=== PATIENT | female | born 1945 | race Caucasian/White ===

== ENCOUNTER 2019-05-24 14:17 | Outpatient (CLI) | payer MEDICARE, SELFPAY ==
--- NOTE | ~2019-05-24 | CT_ITS ---
EXAMINATION: CT chest abdomen pelvis w con EXAM DATE: 05/24/2019 14:55 INDICATION: Cancers of endometrium, appendix, non-Hodgkin lymphoma. TECHNIQUE: Spiral CT of the chest, abdomen and pelvis was performed following intravenous injection o f 100 mL Omnipaque 350. Axial, coronal and sagittal images were reviewed. Coronal maximum intensity pixel images of chest reviewed. The dose-length product (DLP) for this examination was 383.00 mGy-c m. The exposure was tailored according to patient size (auto mA exposure control), and iterative rec onstruction (ASIR) was used as additional dose reduction technique. Comparison is made to prior exami nation from 02/28/2019. FINDINGS: CHEST: Again there are approximately 8 cystic masses within the lungs bilaterally, most have thin-wa lled and very minimal solid component with multiple internal septations. 2 right lower lobe nodules h ave more substantial soft tissue component, largest measuring up to 2.4 cm, solid component may be mi nimally increased in size compared to prior study (previous largest dimension about 2.0 cm). There is moderate bronchiectasis, mild emphysema. Chronic apical scarring. 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 There is a right-sided Chemo-Port. There are no pleural or pe ricardial effusions. Tracheobronchial tree is patent. There is no mediastinal, hilar or axillary lymphadenopathy. There is no pneumothorax. Heart normal in size. There is mild coronary arteria l calcification, arterial sclerosis. ABDOMEN PELVIS: The liver, spleen, adrenal glands and pancreas are unremarkable. Gallbladder is unre markable. No biliary obstruction. Portal and splenic veins are patent. Kidneys enhance symmetrical ly. There is no hydronephrosis. The uterus is not identified and has likely been surgically resect ed. The bladder is unremarkable. There is no retroperitoneal or pelvic lymphadenopathy. There is mild scattered arteriosclerotic disease. Probable appendectomy. The stomach and small bowel are unremarkable. There is expected amount of co lonic stool. No free intraperitoneal gas. There are no osteoblastic or osteolytic lesions identif ied. There is severe bilateral hip arthritis, with collapse of both femoral heads more advanced on th e right side, does not appear significantly changed. Again there are mild to moderate compression fra ctures of T12 and L2, mild compression fracture of T11. IMPRESSION: 1. Cystic metastatic lung nodules unchanged number but may have minimal interval increase in solid c omponent of 2 nodules at the right lung base. 2. No evidence of intra-abdominal metastatic disease. 3. Chronic osseous findings. Reviewed, dictated and finalized at location A. IMPRESSION: 1. Cystic metastatic lung nodules unchanged number but may have minimal interv al increase in solid component of 2 nodules at the right lung base. 2. No evidence of intra-abdominal metastatic disease. 3. Chronic osseous findings.
== END 2019-05-24 14:18 | disposition home or self-care (01) ==
PROVIDERS: PCP Family Medicine; Visit Provider Internal Medicine Hematology & Oncology
DX: C54.1 Malignant neoplasm of endometrium (principal)
CPT/HCPCS: 71260; 74177; Q9967

== ENCOUNTER 2019-09-06 09:54 | Outpatient (CLI) | payer MEDICARE, SELFPAY ==
--- NOTE | ~2019-09-06 | CT_ITS ---
EXAMINATION: CT chest abdomen pelvis w con EXAM DATE: 09/06/2019 11:12 INDICATION: Endometrial carcinoma, recurrence. TECHNIQUE: Spiral CT of the chest, abdomen and pelvis was performed following intravenous injection o f 100 mL Omnipaque 350. Axial, coronal and sagittal images were reviewed. Coronal maximum intensity pixel images of chest reviewed. The dose-length product (DLP) for this examination was 416.86 mGy-c m. The exposure was tailored according to patient size (auto mA exposure control), and iterative rec onstruction (ASIR) was used as additional dose reduction technique. Comparison is made to prior exami nation from 05/24/2019. FINDINGS: CHEST: Approximately 8 lung metastases, 6 of which have cystic components are identified. Again the largest solid component is in the right lower lobe measuring 2.4 x 2.2 cm today which is unchanged. T hese all appear unchanged compared to prior study, stable. There is mild emphysema. Congenital aberra nt right subclavian artery. No central pulmonary emboli. There is moderate bronchiectasis. There are no pleural or pericardial effusions. Tracheobronchial tree is patent. There is no mediastinal, h ilar or axillary lymphadenopathy. There is no pneumothorax. Heart normal in size. There is mild coronary arterial calcification, arterial sclerosis. ABDOMEN PELVIS: The liver, spleen, adrenal glands and pancreas are unremarkable. Gallbladder is unre markable. No biliary obstruction. Portal and splenic veins are patent. Kidneys enhance symmetrical ly. There is no hydronephrosis. The uterus is not identified and has likely been surgically resect ed. The bladder is unremarkable. There is no retroperitoneal or pelvic lymphadenopathy. There is mild scattered arteriosclerotic disease. Cecal base surgical changes. Probable appendectomy. The stomach and small bowel are unremarkable. T here is expected amount of colonic stool. No free intraperitoneal gas. Severe bilateral hip arthr itis, collapse of the femoral heads which is more advanced on the right side. Mild to moderate chroni c compression fractures T12 and L2, mild at T11. There are no osteoblastic or osteolytic lesions iden tified. IMPRESSION: 1. Stable lung metastases. 2. Other chronic findings unchanged. Reviewed, dictated and finalized at location A.
== END 2019-09-06 09:55 | disposition home or self-care (01) ==
PROVIDERS: PCP Family Medicine; Visit Provider Internal Medicine Hematology & Oncology
DX: C54.1 Malignant neoplasm of endometrium (principal); C78.00 Secondary malignant neoplasm of unspecified lung
CPT/HCPCS: 71260; 74177; Q9967

== ENCOUNTER 2019-11-29 10:15 | Outpatient (CLI) | payer MEDICARE, SELFPAY ==
--- NOTE | ~2019-11-29 | CT_ITS ---
EXAMINATION: CT chest abdomen pelvis w con DATE: 11/29/2019 10:57 INDICATION: Carcinoma of the endometrium TECHNIQUE: Transaxial computed tomographic images of the chest, abdomen, and pelvis were obtained aft er the administration of 100 cc of Omnipaque 350 intravenous contrast. The dose-length product (DLP) was 405.05 mGy-cm. Automated exposure control and iterative reconstruction technique were employed. COMPARISON: 08/27/2019 FINDINGS: CHEST CT: A right internal jugular Port-A-Cath ends with its tip in the right atrium. There are stable cystic m asses with thin internal septations and cystic and solid masses in the lungs. No new lung nodule or m ass is identified. There is no pleural effusion or pneumothorax. No pathologically enlarged thoracic lymph nodes are identified. The heart size is normal. Aberrant origin of the right subclavian artery is again noted. ABDOMEN/PELVIS CT: The liver, spleen, pancreas, gallbladder, and adrenal glands are normal. The kidneys are unremarkable . There is calcified atherosclerosis of the aorta and many of the other arteries. No pathologically e nlarged abdominal or pelvic lymph nodes are identified. Surgical changes are noted in the bowel with a anastomosis seen in the right pelvis. There are chronic and unchanged compression fractures of T11, T12, and L2. There is severe lumbar spondylosis at L4-5. There is advanced osteoarthritis of the hip s with deformity of the femoral heads. IMPRESSION: 1. Stable metastatic disease of the lungs without evidence of new or metastatic disease in the chest, abdomen, or pelvis. Reviewed, dictated and finalized at location A.
== END 2019-11-29 10:16 | disposition home or self-care (01) ==
PROVIDERS: PCP Family Medicine; Visit Provider Internal Medicine Hematology & Oncology
DX: C54.1 Malignant neoplasm of endometrium (principal); C78.00 Secondary malignant neoplasm of unspecified lung
CPT/HCPCS: 71260; 74177; Q9967

== ENCOUNTER 2020-02-15 14:15 | Outpatient (CLI) | payer MEDICARE, SELFPAY ==
--- NOTE | 2020-02-15 14:56 | ECHO_ITS ---
Patient Info Name: Kailee Marques Age: 74 years : 1945 Gender: Female Ht: 60 in Wt: 127 lbs BSA: 1.57 m2 HR: 87 bpm BP: 178 / 96 mmHg Technical Quality: Good Exam Date: 02/15/2020 3:24 PM Exam Location: [facility] Patient Status: Outpatient Admit Date: 02/15/2020 Staff Ordering Physician: Frank Menjivar DO Sales Management Intern: Esequiel Light RDCS Attending Provider: Frank Menjivar DO Referring Physician: Otto CARR; Exam Type: CA echo doppler color flow Study Info Indications I34.1 - Nonrheumatic mitral (valve) prolapse Complete two-dimensional, color flow and Doppler transthoracic echocardiogram is performed. Summary 1. Complete two-dimensional, color flow and Doppler transthoracic echocardiogram is performed. 2. Left ventricular chamber dimension is normal. 3. Left ventricular systolic function is normal, estimated at 60-65%. 4. The left ventricular diastolic function is abnormal. 5. E/e' 23 is elevated. 6. Left atrial chamber dimension is severely enlarged. 7. 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 8. There is mild to moderate mitral valve regurgitation with eccentric jet that is anteriorly directed which could underestimate severity of regurgitation. 9. There is mild tricuspid valve regurgitation. 10. Mild pulmonary hypertension, estimated pulmonary arterial systolic pressure is 41 mmHg. Left Ventricle E/e' 23 is elevated. Left ventricular chamber dimension is normal. Left ventricular systolic function is normal, estimated at 60-65%. The left ventricular diastolic function is abnormal. Right Ventricle Right ventricular chamber dimension is normal. Right ventricular systolic function is normal. Left Atria Left atrial chamber dimension is severely enlarged. Right Atria Right atrial chamber dimension is normal. Aortic Valve The aortic valve is trileaflet. There is no aortic valve stenosis. There is no aortic valve regurgitation. Pulmonic Valve There is no pulmonic regurgitation. 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 There is mild to moderate mitral valve regurgitation with eccentric jet that is anteriorly directed which could underestimate severity of regurgitation. There is no mitral valve stenosis. Tricuspid Valve There is mild tricuspid valve regurgitation. Mild pulmonary hypertension, estimated pulmonary arterial systolic pressure is 41 mmHg. Pericardium/Pleural There is no pericardial effusion. Inferior Vena Cava Normal inferior vena cava with >50% collapse upon inspiration consistent with normal right atrial pressure, 5 mmHg. Aorta The aortic root size at the sinus of Valsalva is normal. Left Ventricular Outflow Tract Name Value Normal LVOT 2D LVOT Diameter 2.0 cm Mitral Valve Name Value Normal MV Doppler MV Peak Gradient 3 mmHg MV Mean Gradient 1 mmHg MV Decel Jones 692 cm/s2
== END 2020-02-15 14:16 | disposition home or self-care (01) ==
LOC: ANHCARD 14:16
PROVIDERS: PCP Family Medicine; Visit Provider Internal Medicine Cardiovascular Disease
DX: I08.3 Combined rheumatic disorders of mitral, aortic and tricuspid valves (principal)
CPT/HCPCS: 93306

== ENCOUNTER 2020-04-03 12:05 | Outpatient (CLI) | payer MEDICARE, SELFPAY ==
--- NOTE | ~2020-04-03 | CT_ITS ---
EXAMINATION: CT chest abdomen pelvis w con DATE: 04/03/2020 13:04 INDICATION: Restaging of endometrial carcinoma TECHNIQUE: Computed tomography (CT) of the chest, abdomen, and pelvis was performed with 100 cc Omnip aque 350 intravenous contrast. Automated exposure control and iterative reconstruction technique were employed. Exam dose: 462.98 mGy-cm total exam DLP. COMPARISON: 11/29/2019 CT chest abdomen pelvis FINDINGS: CHEST CT: Right Port-A-Cath catheter. Stable bilateral apical pulmonary scarring. Bilateral pulmonary cystic and mixed cystic and solid masses are again noted with minimal variability in size since 11/29/2019. Some are slightly increased and some are slightly decreased in size since the prior examination. No interval pulmonary mass lesion is noted. No pulmonary infiltrate or consoli dation. Again noted is a an apparent origin of the right subclavian artery which courses posterior to the eso phagus. No CT evidence of pulmonary embolism. No hilar or mediastinal mass lesion or lymphadenopathy. Normal heart size. No pericardial or pleural effusion or pneumothorax. ABDOMEN/PELVIS CT: The liver, gallbladder, bile ducts, spleen, pancreas, pancreatic duct and adrenal glands are unremark able. No renal mass lesion or urinary tract calculus or hydroureteronephrosis. There is atherosclerotic calcification of the abdominal aorta and branches but no abdominal aortic an eurysm. No intraperitoneal or retroperitoneal or pelvic mass lesion or adenopathy or ascites. The uri nary bladder is unremarkable. Status post hysterectomy. There is a suture line at the cecum. The sigmoid colon is very redundant. There is a prominent amount of fecal material in the colon. No bowel obstruction, bowel wall thickening, pneumatosis or intraper itoneal free air is evident. Moderate anterior wedge compression fracture deformities of T11, T12 and L2. Severe degenerative disc disease at L4-5. Severe degenerative and erosive/destructive changes at both hip joints, with severe flattening and de formity of the femoral heads, right worse than left. IMPRESSION: Status post hysterectomy for endometrial carcinoma Relatively stable bilateral pulmonary metastatic disease Reviewed, dictated and finalized at Location A. Reviewed, dictated and finalized at location A. OR DEPARTMENT SUPERVISOR
== END 2020-04-03 12:06 | disposition home or self-care (01) ==
PROVIDERS: Family Provider Internal Medicine Cardiovascular Disease; PCP Family Medicine; Visit Provider Internal Medicine Hematology & Oncology
DX: C54.1 Malignant neoplasm of endometrium (principal); C78.02 Secondary malignant neoplasm of left lung; C78.01 Secondary malignant neoplasm of right lung
CPT/HCPCS: 71260; 74177; Q9967

== ENCOUNTER 2020-07-24 09:29 | Outpatient (CLI) | payer MEDICARE, SELFPAY ==
--- NOTE | ~2020-07-24 | CT_ITS ---
EXAMINATION: CT chest abdomen pelvis w con EXAM DATE: 07/24/2020 10:14 INDICATION: Endometrial cancer. Lung metastases. TECHNIQUE: Spiral CT of the chest, abdomen and pelvis was performed following intravenous injection o f 100 mL Omnipaque 350. Axial, coronal and sagittal images chest, abdomen and pelvis were reviewed. Coronal maximum intensity pixel images of chest reviewed. The dose-length product (DLP) for this ex amination was 490.57 mGy-cm. The exposure was tailored according to patient size (auto mA exposure c ontrol), and iterative reconstruction (ASIR) was used as additional dose reduction technique. Compari son is made to prior examination from 09/06/2019. FINDINGS: CHEST: There is a right-sided Chemo-Port. Again there are scattered pulmonary metastatic lesions wit h varying degrees of cavitation. Largest in the right lower lobe measuring 2.8 x 2.6 cm (dimensions o n CT last year 2.5 x 2.4 cm), modest interval increase in size can be demonstrated compared to one ye ar ago, but difficult to appreciate change compared to March. There is a right middle lobe nodule measuring 1.8 cm today, size unchanged but now has more substantial solid component. Difficult to igor reciate any interval change in the other lesions. There is mild emphysema and bronchiectasis. Aberran t right plate in artery, congenital variant There are no pleural or pericardial effusions. Tracheob ronchial tree is patent. There is no mediastinal, hilar or axillary lymphadenopathy. There is no pneumothorax. Heart normal in size. There is mild coronary arterial calcification, arterial scler osis. ABDOMEN PELVIS: The liver, spleen, adrenal glands and pancreas are unremarkable. Gallbladder is unre markable. No biliary obstruction. Portal and splenic veins are patent. Kidneys enhance symmetrical ly. There is no hydronephrosis. Uterus and ovaries have been resected. No evidence of peritoneal c arcinomatosis. The bladder is unremarkable. There is no retroperitoneal or pelvic lymphadenopathy. There is mild scattered arteriosclerotic disease. Cecal surgical change, suture material with appendix not identified. The stomach and small bowel are unremarkable. There is moderate amount of colonic stool. No free intraperitoneal gas. Mild to mo derate chronic compression fractures T12 and L2, mild at T11. There are no osteoblastic or osteolytic lesions identified. There is severe bilateral hip osteoarthritis, completely collapsed right femora l head mild collapse on the left. IMPRESSION: 1. Pulmonary metastases, with modest interval increase in solid component, volume compared to one ye ar ago. 2. Mild emphysema and bronchiectasis. Severe bilateral hip osteoarthritis. 3. Chronic thoracolumbar compression fractures. 4. Surgical changes. Reviewed, dictated and finalized at location B. IMPRESSION: 1. Pulmonary metastases, with modest interval increase in solid component, vol ume compared to one year ago. 2. Mild emphysema and bronchiectasis. Severe bilateral hip osteoarthritis. 3. Chronic thoracolumbar compression fractures. 4. Surgical changes.
== END 2020-07-24 09:30 | disposition home or self-care (01) ==
PROVIDERS: PCP Family Medicine; Visit Provider Internal Medicine Hematology & Oncology
DX: C54.1 Malignant neoplasm of endometrium (principal); J43.9 Emphysema, unspecified; R91.8 Other nonspecific abnormal finding of lung field
CPT/HCPCS: 71260; 74177; Q9967

== ENCOUNTER 2020-09-04 12:45 | Emergency (ER) | payer MEDICARE, SELFPAY ==
--- NOTE | 2020-09-04 12:57 | ED.FEMALEGU ---
HPI - Female Genitourinary General Chief complaint: Urogenital-Female Stated complaint: Possible UTI Time Seen by Provider: 09/04/20 12:57 Source: patient and RN notes reviewed History of Present Illness HPI Narrative: Patient is a 75-year-old female who presents the urgent care with complaints of a possible UTI. Patient states that she started with symptoms last night with dysuria, cloudy urine and low back pain. Patient denies any fever, chills, nausea, vomiting, abdominal pain. Patient does have a history of UTIs. Denies of any dvhe-ehi-tytznnd medication for her pain. Patient does have infusions for stage IV lung cancer and is currently in remission. No other acute complaints. No acute distress noted. Patient aware of the plan of care. Some parts of this dictation were generated by voice recognition software and may contain typographical and/or grammatical inaccuracies. Related Data Home Medications Medication Instructions Recorded Confirmed Lactobacillus acidophilus 2 cap PO TID 11/23/18 09/04/20 biotin 1,000 mcg PO TID 11/23/18 09/04/20 cholecalciferol (vitamin D3) 1,000 unit PO DAILY 11/23/18 09/04/20 krill xyx-bmscf-2-dha-epa 300 cap PO DAILY 11/23/18 09/04/20 magnesium oxide 400 mg PO DAILY 11/23/18 09/04/20 multivitamin 0.5 tablet PO BID 11/23/18 09/04/20 ubidecarenone-omega 3-vit E 1 cap PO DAILY 11/23/18 09/04/20 calcium carbonate 600 mg calcium 600 mg PO DAILY tablet 10/24/19 09/04/20 (1,500 mg) tablet Ocuvite 1 tablet PO DAILY 09/04/20 09/04/20 latanoprost 1 drp EACH EYE BID 09/04/20 09/04/20 timolol maleate 1 drp EACH EYE BID 09/04/20 09/04/20 Allergies Allergy/AdvReac Type Severity Reaction Status Date / Time codeine Allergy Severe Nausea and Verified 09/04/20 13:13 Vomiting hydrocodone AdvReac Severe Hallucinati Verified 09/04/20 13:13 ng morphine AdvReac Severe Nausea and Verified 09/04/20 13:13 Vomiting propoxyphene AdvReac Severe Nausea and Verified 09/04/20 13:13 Vomiting tramadol AdvReac Severe Nausea and Verified 09/04/20 13:13 Vomiting cyclobenzaprine AdvReac Mild Other Verified 09/04/20 13:13 acetaminophen AdvReac Unknown Nausea Verified 09/04/20 13:13 cortisone AdvReac Unknown Nausea Verified 09/04/20 13:13 ibuprofen AdvReac Unknown Gastrointestinal Verified 09/04/20 13:13 Upset prednisone AdvReac Unknown Nausea Verified 09/04/20 13:13 Review of Systems Review of Systems: Narrative: CONSTITUTIONAL: Denies fever, chills, or sweats. EYES: Denies visual changes, redness, or discharge. ENT: Denies rhinorrhea, congestion, sore throat, or otalgia. CARDIOVASCULAR: Denies chest pain, palpitations, or edema. RESPIRATORY: Denies cough or dyspnea. GASTROINTESTINAL: Denies abdominal pain, nausea, vomiting, or diarrhea. GENITOURINARY: Reports of dysuria and cloudy urine SKIN: Denies rash or itching. MUSCULOSKELETAL: Reports of low back pain NEUROLOGIC: Denies headache, numbness, or weakness. All other systems reviewed are negative, except as documented in HPI. 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
[2020-09-04 13:14] VITALS: PULSE 86; RESP 18; TEMP 36.7; O2SAT 99
[2020-09-04 13:15] VITALS: BP 140/88
[2020-09-04 13:19] VITALS: PULSE 86; RESP 18; TEMP 36.7; O2SAT 99
== END 2020-09-04 14:00 | disposition home or self-care (01) ==
PROVIDERS: Emergency Provider Nurse Practitioner Family; PCP Family Medicine
DX: N39.0 Urinary tract infection, site not specified (principal); M81.0 Age-related osteoporosis without current pathological fracture; Z85.118 Personal history of other malignant neoplasm of bronchus and lung; Z85.038 Personal history of other malignant neoplasm of large intestine; Z85.42 Personal history of malignant neoplasm of other parts of uterus; Z98.49 Cataract extraction status, unspecified eye
CPT/HCPCS: 81003; 87086; 87088; 99213; G0463

== ENCOUNTER 2020-11-26 13:46 | Outpatient (CLI) | payer MEDICARE, SELFPAY ==
--- NOTE | ~2020-11-26 | CT_ITS ---
EXAMINATION: CT chest abdomen pelvis w con DATE: 11/26/2020 15:09 INDICATION: Recurrent carcinoma of the endometrium TECHNIQUE: Transaxial computed tomographic images of the chest, abdomen, and pelvis were obtained aft er the administration of 100 cc of Omnipaque 350 intravenous contrast. The dose-length product (DLP) was 419.05 mGy-cm. Automated exposure control and iterative reconstruction technique were employed. COMPARISON: 07/24/2020 FINDINGS: CHEST CT: There is a 2.9 x 2.6 cm nodule of the right lower lobe without significant change. A cavitary nodule of the right lower lobe with a peripheral nodular component measuring 1.6 cm is also not significantl y changed. There is a stable 2.4 cm predominantly cystic nodule of the right lower lobe. A 1.9 cm nod ule of the right middle lobe is stable. Cavitary nodules of the left lower lobe are also stable. No n ew pulmonary nodules are identified. There is no pleural effusion or pneumothorax. A right internal j ugular venous catheter ends with its tip in the right atrium. There is aberrant origin of the right s ubclavian artery. ABDOMEN/PELVIS CT: The liver, spleen, pancreas, gallbladder, and adrenal glands are normal. The kidneys are unremarkable . No pathologically enlarged abdominal or pelvic lymph nodes are identified. There is no free intrape ritoneal gas or evidence of bowel obstruction. There is calcified atherosclerosis of the aorta and ma ny of the other arteries. Surgical changes are noted in the cecum. There are also changes of hysterec phil and oophorectomy. There is chronic severe osteoarthritis of the hips with deformity of the femor al heads. Chronic compression fractures of T11, T12, and L2 are noted. Severe lumbar spondylosis is p resent at L4-5. IMPRESSION: 1. Stable pulmonary nodules, consistent with metastatic disease. 2. No significant change in the abdomen or pelvis is identified. Reviewed, dictated and finalized at location A.
== END 2020-11-26 13:47 | disposition home or self-care (01) ==
LOC: ANHIMG 13:52
PROVIDERS: PCP Family Medicine; Visit Provider Internal Medicine Hematology & Oncology
DX: C54.1 Malignant neoplasm of endometrium (principal); R91.8 Other nonspecific abnormal finding of lung field
CPT/HCPCS: 71260; 74177; Q9967

== ENCOUNTER 2020-12-04 11:09 | Outpatient (CLI) | payer MEDICARE, SELFPAY ==
[2020-12-04 13:00] LABS: Vitamin D 25 Hydroxy 88.1 ng/mL
[2020-12-04 13:28] LABS: Cholesterol 298 mg/dL (0-200); HDL Direct 72 mg/dL; Triglycerides 199 mg/dL (<150)
[2020-12-04 13:40] LABS: LDL Cholesterol Direct 156 mg/dL
[2020-12-04 14:19] LABS: Vitamin B12 > 1000.0 pg/mL (239-931)
[2020-12-04 15:31] LABS: Free T4 Free Thyroxine Reflex 0.78 ng/dL (0.78-2.19)
== END 2020-12-04 11:10 | disposition home or self-care (01) ==
LOC: ANHLAB 11:13
PROVIDERS: PCP Family Medicine; Visit Provider Nurse Practitioner
DX: E55.9 Vitamin D deficiency, unspecified (principal); I10 Essential (primary) hypertension; E89.0 Postprocedural hypothyroidism; E53.8 Deficiency of other specified B group vitamins
CPT/HCPCS: 36415; 80061; 82306; 82607; 84439; 84443; 84480

== ENCOUNTER 2021-03-19 12:54 | Outpatient (CLI) | payer MEDICARE, SELFPAY ==
[2021-05-14 08:22] LABS: Cholesterol 298 mg/dL (0-200); HDL Direct 70 mg/dL; LDL Cholesterol Direct 148 mg/dL; Triglycerides 157 mg/dL (<150)
== END 2021-03-19 13:34 | disposition home or self-care (01) ==
LOC: ANHLAB 04-15 12:54
PROVIDERS: PCP Family Medicine; Visit Provider Internal Medicine Cardiovascular Disease
DX: I10 Essential (primary) hypertension (principal)
CPT/HCPCS: 36415; 80048; 80061

== ENCOUNTER 2021-04-03 10:16 | Outpatient (CLI) | payer MEDICARE, SELFPAY ==
--- NOTE | ~2021-04-03 | CT_ITS ---
EXAMINATION: CT chest abdomen pelvis w con DATE: 04/03/2021 11:03 INDICATION: Recurrent carcinoma of endometrium. TECHNIQUE: Computed tomography (CT) of the chest, abdomen, and pelvis was performed with 100 mL Omnip aque 350 intravenous contrast. Automated exposure control and iterative reconstruction technique were employed. The dose-length product was 357.26 mGy-cm. COMPARISON: CT 11/26/2020 FINDINGS: CHEST CT: There is mild scarring at the lung apices. There is a 3.2 x 3.0 cm mass in right lung lower lobe that previously measured 3.0 x 2.9 cm. There is a 2.0 x 1.1 cm nodule in right middle lobe that previousl y measured 2.0 x 1.0 cm. Again seen are 2 cavitary nodules in right lower lobe. Again seen are 2 cavi tary nodules in left lower lobe. No pleural effusion. There are nodules in the thyroid measuring up t o 5 mm, likely not clinically significant. There is a right internal jugular port with tip in right a trium. There is left atrial enlargement of the heart. No pericardial effusion. There is an aberrant r ight subclavian artery. ABDOMEN/PELVIS CT: The liver, gallbladder, spleen, pancreas, and adrenal glands are normal. There is cortical thinning o f the kidneys. There is an anastomosis at the ileocolic junction. There are no pathologically enlarge d lymph nodes. There is trace pelvic ascites. There is severe osteoarthritis of the hips. There is a chronic burst fracture of T12. There are chronic compression fractures of T11 and L2. IMPRESSION: 1. Stable pulmonary nodules and right lower lobe mass, consistent with metastatic disease. Reviewed, dictated and finalized at location A. TY PUMP OPERATOR IMPRESSION: 1. Stable pulmonary nodules and right lower lobe mass, consistent with metastat ic disease.
== END 2021-04-03 10:17 | disposition home or self-care (01) ==
LOC: ANHIMG 10:17
PROVIDERS: PCP Family Medicine; Visit Provider Internal Medicine Hematology & Oncology
DX: C54.1 Malignant neoplasm of endometrium (principal); R91.8 Other nonspecific abnormal finding of lung field
CPT/HCPCS: 71260; 74177; Q9967

== ENCOUNTER 2021-04-05 12:17 | Outpatient (CLI) | payer MEDICARE, SELFPAY ==
--- NOTE | 2021-04-05 12:35 | ECHO_ITS ---
Patient Info Name: Kailee Marques Age: 75 years : 1945 Gender: Female Ht: 61 in Wt: 126 lbs BSA: 1.58 m2 HR: 92 bpm BP: 159 / 87 mmHg Technical Quality: Good Exam Date: 04/05/2021 1:03 PM Exam Location: [facility] Patient Status: Outpatient Admit Date: 04/05/2021 Staff Ordering Physician: Frank Menjivar DO Retail Area Manager: Lida Goodman RDCS Attending Provider: Frank Menjivar DO Referring Physician: Otto CARR; Exam Type: CA echo doppler color flow Study Info Indications I34.1 - Nonrheumatic mitral (valve) prolapse Complete two-dimensional, color flow and Doppler transthoracic echocardiogram is performed. Summary 1. Complete two-dimensional, color flow and Doppler transthoracic echocardiogram is performed. 2. Left ventricular chamber dimension is normal. 3. Ventricular septum is sigmoid shaped. No LVOT obstruction. 4. Left ventricular systolic function is normal, estimated at 65-70%. 5. The left ventricular diastolic function is abnormal. 6. E/e' 18 is elevated. 7. Global longitudinal strain is normal at -22.0%. 8. Left atrial chamber dimension is severely enlarged. 9. Right atrial chamber dimension is mildly enlarged. 10. Linear artifact in the right atrium suggestive of catheter(s), pacemaker lead(s), or ICD lead(s). 11. There is mild aortic valve sclerosis. 12. The mitral valve has moderately thickened leaflets and severe posterior prolapse. 13. There is mild mitral valve regurgitation. 14. The tricuspid valve leaflets are mildly thickened. 15. There is mild to moderate tricuspid valve regurgitation. 16. Mild pulmonary hypertension, estimated pulmonary arterial systolic pressure is 43 mmHg. Left Ventricle E/e' 18 is elevated. Global longitudinal strain is normal at -22.0%. Ventricular septum is sigmoid shaped. No LVOT obstruction. Left ventricular chamber dimension is normal. Left ventricular systolic function is normal, estimated at 65-70%. The left ventricular diastolic function is abnormal. Right Ventricle Right ventricular systolic function is normal and with normal TAPSE 2.2 cm. Right ventricular chamber dimension is normal. Left Atria Left atrial chamber dimension is severely enlarged. Right Atria Linear artifact in the right atrium suggestive of catheter(s), pacemaker lead(s), or ICD lead(s). Right atrial chamber dimension is mildly enlarged. Aortic Valve The aortic valve is trileaflet. There is mild aortic valve sclerosis. There is no aortic valve stenosis. There is no aortic valve regurgitation. Pulmonic Valve There is no pulmonic regurgitation. Mitral Valve The mitral valve has moderately thickened leaflets and severe posterior prolapse. There is no mitral valve stenosis. There is mild mitral valve regurgitation. Tricuspid Valve The tricuspid valve leaflets are mildly thickened. There is mild to moderate tricuspid valve regurgitation. Mild pulmonary hypertension, estimated pulmonary arterial systolic pressure is 43 mmHg. Pericardium/Pleural There is no pericardial effusion. Inferior Vena Cava Normal inferior vena cava with >50% collapse upon inspiration consistent with normal right atrial pressure, 5 mmHg. Aorta The aortic root size at the sinus of Valsalva is normal. Left Ventricular Outflow Tract Name Value Normal
== END 2021-04-05 12:18 | disposition home or self-care (01) ==
LOC: ANHCARD 12:19
PROVIDERS: PCP Family Medicine; Visit Provider Internal Medicine Cardiovascular Disease
DX: I08.3 Combined rheumatic disorders of mitral, aortic and tricuspid valves (principal)
CPT/HCPCS: 93306

== ENCOUNTER 2021-08-05 10:33 | Outpatient (CLI) | payer MEDICARE, SELFPAY ==
--- NOTE | ~2021-08-05 | CT_ITS ---
EXAMINATION: CT chest abdomen pelvis wo con DATE: 08/05/2021 10:58 INDICATION: Restaging of endometrial carcinoma; no signs or symptoms reported at this time TECHNIQUE: Computed tomography (CT) of the chest, abdomen, and pelvis was performed without intraveno us contrast. Automated exposure control and iterative reconstruction technique were employed. Exam do se: 388.41 mGy-cm total exam DLP. COMPARISON: April 03, 2021 CT chest abdomen pelvis FINDINGS: CHEST CT: Right Port-A-Cath catheter is again noted. Mild chronic bilateral apical scarring. Bilateral pulmonary masses are stable since April 03, 2021 including middle lobe soft tissue mass abutting the anterior aspect of the greater fissure, measuring approximately 11.5 x 18 mm compared to 10.1 x 18 mm on April 03, 2021, soft tissue 2.9 cm mass of the anterolateral right lung base, sta ble. There are 2 large cavitary up to approximately 2 cm and 1.8 cm size, also relatively unchanged s len April 03, 2021. Approximately 7.5 mm and 14 mm left upper lobe cavitary nodules are stable. Stable approximately 11 m m posteromedial left lower lobe cavitary nodule. Chronic discoid scarring at the lung bases. No pulmonary infiltrate or consolidation or pneumothorax. 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 Normal heart size. No thoracic aortic aneurysm. There is aortic and coronary artery calcification. Normal heart size. No pericardial or pleural effusion. ABDOMEN/PELVIS CT: Normal morphology of the adrenal glands. The liver, spleen, pancreas, gallbladder, bile ducts and pancreatic duct appear unremarkable. No renal mass lesion or urinary tract calculus or hydroureteronephrosis is detected. The urinary blad merly is relatively evacuated. A small amount of free fluid in the posterior cul-de-sac on the right. S tatus post hysterectomy. There is atherosclerotic calcification of the abdominal aorta, prominent calcification of the proxima l right renal artery. No abdominal of aortic aneurysm. No intraperitoneal or retroperitoneal or pelvic mass lesion or adenopathy or ascites is detected. Suture line of the cecum. No bowel obstruction or intraperitoneal free air. 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 There are anterior wedge compression fracture deformities of T11, L2 and burst fracture of T12, all s table since April 03, 2021. There is multilevel degenerative disc disease, most pronounced at L4-5. Osteopenia. 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 Reviewed, dictated and finalized at location [facility].
== END 2021-08-05 10:34 | disposition home or self-care (01) ==
PROVIDERS: PCP Family Medicine; Visit Provider Internal Medicine Hematology & Oncology
DX: C54.1 Malignant neoplasm of endometrium (principal); R91.8 Other nonspecific abnormal finding of lung field; M87.851 Other osteonecrosis, right femur; M87.852 Other osteonecrosis, left femur; S22.081A Stable burst fracture of T11-T12 vertebra, initial encounter for closed fracture; X58.XXXA Exposure to other specified factors, initial encounter
CPT/HCPCS: 71250; 74176

== ENCOUNTER 2021-08-16 10:40 | Outpatient (CLI) | payer MEDICARE, SELFPAY ==
[2021-08-16 11:19] LABS: Basophils Absolute Auto 0.1 K/mm3 (0.0-0.1); Eosinophils Absolute Auto 0.1 K/mm3 (0-0.3); Eosinophils Percent Auto 1.6 % (0-4.4); Hematocrit 45.4 % (37.0-47.0); Hemoglobin 14.7 g/dL (12.0-15.0); Lymphocytes Absolute Auto 0.93 K/mm3 (0.9-3.2); Mean Corpuscular HGB Conc 32.4 g/dl (32-36); Mean Corpuscular Hemoglobin 31.4 pg (26-34); Monocytes Absolute Auto 0.4 K/mm3 (0.1-0.6); Monocytes Percent Auto 7.3 % (2.6-8.5); Neutrophils Absolute Auto 3.5 K/mm3 (1.3-6.7); Neutrophils Percent Auto 71.1 % (45.5-73.1); Platelet Count Result 190 k/mm3 (150-375); Red Blood Count 4.68 M/mm3 (4.2-5.4); Red Cell Distribution Width 13.4 % (11.5-14.5); White Blood Count 4.9 K/mm3 (4.5-10.0)
[2021-08-16 11:22] LABS: Blood Urea Nitrogen 17 mg/dL (8-26); Carbon Dioxide 26 mmol/L (22-30); Chloride 98 mmol/L (98-109); Estimated Glomerular Filt Rate > 60; Glucose 92 mg/dL (70-105); Ionized Calcium (POC) 1.28 mmol/L (1.11-1.31); Potassium 4.2 mmol/L (3.5-4.9); Sodium 133 mmol/L (138-146)
[2021-08-16 16:59] LABS: Alanine Aminotransferase 19 U/L (6-35); Albumin Level 4.8 g/dL (3.5-5.1); Alkaline Phosphatase 69 U/L (38-126); Anion Gap 9 mmol/L (8-16); Aspartate Amino Transferase 31 U/L (14-36); Bilirubin,Total 0.4 mg/dL (0.2-1.3); Blood Urea Nitrogen 17 mg/dL (7-17); Calcium 10.1 mg/dL (8.4-10.2); Carbon Dioxide 27 mmol/L (22-30); Chloride 97 mmol/L (98-107); Estimated Glomerular Filt Rate > 60; Glucose 89 mg/dL (65-110); Potassium 4.4 mmol/L (3.4-5.0); Sodium 133 mmol/L (137-145)
[2021-08-16 17:01] LABS: HDL Direct 73 mg/dL; Triglycerides 104 mg/dL (<150)
[2021-08-16 17:06] LABS: LDL Cholesterol Direct 171 mg/dL
[2021-08-16 20:07] LABS: Cholesterol 337 mg/dL (0-200)
== END 2021-08-16 10:41 | disposition home or self-care (01) ==
PROVIDERS: PCP Family Medicine; Referring Provider Internal Medicine Cardiovascular Disease; Visit Provider Internal Medicine Hematology & Oncology
DX: E78.5 Hyperlipidemia, unspecified (principal)
CPT/HCPCS: 36415; 80047; 80053; 80061; 85025

== ENCOUNTER 2021-09-19 08:58 | Outpatient (CLI) | payer MEDICARE, SELFPAY ==
[2021-09-19 10:24] LABS: Alanine Aminotransferase 16 U/L (6-35); Albumin Level 4.7 g/dL (3.5-5.1); Alkaline Phosphatase 63 U/L (38-126); Anion Gap 8 mmol/L (8-16); Aspartate Amino Transferase 34 U/L (14-36); Bilirubin,Total 0.5 mg/dL (0.2-1.3); Blood Urea Nitrogen 14 mg/dL (7-17); Calcium 10.3 mg/dL (8.4-10.2); Carbon Dioxide 31 mmol/L (22-30); Chloride 92 mmol/L (98-107); Cholesterol 180 mg/dL (0-200); Estimated Glomerular Filt Rate > 60; Glucose 95 mg/dL (65-110); HDL Direct 79 mg/dL; Potassium 4.2 mmol/L (3.4-5.0); Sodium 131 mmol/L (137-145); Triglycerides 91 mg/dL (<150)
[2021-09-19 10:35] LABS: LDL Cholesterol Direct 54 mg/dL
== END 2021-09-19 08:59 | disposition home or self-care (01) ==
PROVIDERS: PCP Family Medicine; Visit Provider Internal Medicine Cardiovascular Disease
DX: E78.5 Hyperlipidemia, unspecified (principal)
CPT/HCPCS: 36415; 80053; 80061

== ENCOUNTER 2021-11-12 10:31 | Outpatient (CLI) | payer MEDICARE, SELFPAY ==
--- NOTE | ~2021-11-12 | CT_ITS ---
. EXAMINATION: CT chest abdomen pelvis w con DATE: 11/12/2021 11:44 INDICATION: Recurrent carcinoma of endometrium. TECHNIQUE: Computed tomography (CT) of the chest, abdomen, and pelvis was performed with 100 mL Omnip aque 350 intravenous contrast. Automated exposure control and iterative reconstruction technique were employed. The dose-length product was 379.44 mGy-cm. COMPARISON: CT chest, abdomen, and pelvis 08/05/2021 FINDINGS: CHEST CT: There is mild scarring at the lung apices. There are approximately 7 nodules and one mass in the lung s, some of which are cavitary. A 1.8 cm nodule in right middle lobe is stable from 08/05/2021. A 3.4 c m mass in right lower lobe previously measured 3.2 cm. No pleural effusion. There is a right internal jugular port with tip in right atrium. There is left atrial enlargement of the heart. No pericardial effusion. There is an aberrant right subclavian artery. There is a 5 mm nodule in left thyroid lobe, likely not clinically significant. There is mild thoracic spondylosis. There are chronic fractures o f T11 and T12 vertebral bodies. ABDOMEN/PELVIS CT: The liver, gallbladder, spleen, pancreas, and adrenal glands are normal. There are cysts in the kidne ys measuring up to 4 mm on the left. There are no dilated loops of bowel. There is an anastomosis in the right colon. There are no pathologically enlarged lymph nodes. There is trace pelvic ascites. The re is severe osteoarthritis of the hips. There is severe lumbar spondylosis. There is a chronic compr ession fracture of L2. IMPRESSION: 1. Stable pulmonary nodules and mass, consistent with metastatic disease. Reviewed, dictated and finalized at location [facility].
[2021-11-12 11:37] LABS: Estimated Glomerular Filt Rate > 60
== END 2021-11-12 10:32 | disposition home or self-care (01) ==
PROVIDERS: PCP Family Medicine; Visit Provider Internal Medicine Hematology & Oncology
DX: C54.1 Malignant neoplasm of endometrium (principal); R91.8 Other nonspecific abnormal finding of lung field
CPT/HCPCS: 71260; 74177; 96523; Q9967

== ENCOUNTER 2022-02-12 12:16 | Outpatient (CLI) | payer MEDICARE, SELFPAY ==
--- NOTE | ~2022-02-12 | CT_ITS ---
Clinical Indication: Endometrial carcinoma CT Scan of the Chest, Abdomen, and Pelvis with Contrast: Technique: Contiguous sections were acquired throughout the chest, abdomen, and pelvis after intraven ous administration of 100 cc of Omnipaque 350. Dose reduction technique was used on this scan by shaila dunn automated exposure control and iterative reconstruction technique. The dose-length product (DL P) was 421.36 mGy-cm. COMPARISON: 11/12/2021 Findings: Right-sided Mediport in place. There is no evidence of any significant mediastinal, hilar or axillary lymphadenopathy. The mediastin al soft tissues appear normal. Aberrant right subclavian artery noted. No aortic aneurysm or dissecti on. No central pulmonary embolus seen. There is no evidence of pleural or pericardial effusion. Multiple pulmonary lesions are present, many which are at least partially cavitary. Largest lesion is at the right lung base, measuring 3.6 cm in diameter (axial image 94), probably minimally increased from prior exam. Additional solid lesion in the right middle lobe is present (axial image 69), possib ly minimally increased from prior exam. Additional cavitary lesions are present in the right lower lo be (axial images 87, 93, and in the left lower lobe (axial images 76, 72, 65), and in the left upper lobe (axial image 33), all of which are similar to prior exam. Suspected minimal increase in the mariia d components of several cavitary lesions. The liver, spleen, pancreas, gallbladder, adrenals and kidneys are within normal limits. No evidence of aortic aneurysm. No lymphadenopathy. No bowel obstruction or bowel wall thickening. There is no evidence to suggest acute appendicitis. Urinary bladder is unremarkable. Patient is post hysterectomy. No definite pelvic mass seen. Trace pe lvic free fluid noted. Severe osteoporosis of the bilateral hip joints noted. Mild compression deform ities of T12 and L2 are present, unchanged. Impression: Multiple pulmonary lesions are stable in distribution, several of which are cavitary in nature. Suspe cted minimal increase in size of several lesions. Continued follow-up advised. Stable compression fractures of T12 and L2, mild in degree. Trace pelvic free fluid. Reviewed, dictated and finalized at location [facility]. NOGRAPHER GEOLOGICAL Impression: Multiple pulmonary lesions are stable in distribution, several of which are cav itary in nature. Suspected minimal increase in size of several lesions. Continu ed follow-up advised. Stable compression fractures of T12 and L2, mild in degree. Trace pelvic free fluid.
[2022-02-12 12:47] LABS: Estimated Glomerular Filt Rate > 60
== END 2022-02-12 12:17 | disposition home or self-care (01) ==
PROVIDERS: PCP Nurse Practitioner; Visit Provider Internal Medicine Hematology & Oncology
DX: C54.1 Malignant neoplasm of endometrium (principal); R91.8 Other nonspecific abnormal finding of lung field
CPT/HCPCS: 71260; 74177; Q9967

== ENCOUNTER 2022-04-29 13:16 | Outpatient (CLI) | payer MEDICARE, SELFPAY ==
--- NOTE | 2022-04-29 13:27 | ECHO_ITS ---
Patient Info Name: Kailee Marques Age: 76 years : 1945 Gender: Female Ht: 60 in Wt: 126 lbs BSA: 1.57 m2 HR: 80 bpm BP: 151 / 79 mmHg Technical Quality: Good Exam Date: 04/29/2022 2:04 PM Exam Location: [facility] Patient Status: Outpatient Admit Date: 04/29/2022 Staff Ordering Physician: Frank Menjivar DO Instrumentation Manager: Cipriano Wright RDCS, RT Attending Provider: Frank Menjivar DO Referring Physician: Otto CARR; Exam Type: CA echo doppler color flow Study Info Indications I34.1 - Nonrheumatic mitral (valve) prolapse Complete two-dimensional, color flow and Doppler transthoracic echocardiogram is performed. Strain analysis performed. Summary 1. Complete two-dimensional, color flow and Doppler transthoracic echocardiogram is performed. 2. Left ventricular chamber dimension is normal. 3. Left ventricular systolic function is normal, estimated at 60-65%. 4. The left ventricular diastolic function is abnormal. 5. E/e' 16 is elevated. 6. Global longitudinal strain is normal -23.2%. 7. Left atrial chamber dimension is moderately enlarged. 8. The mitral valve has moderately thickened leaflets and severe posterior prolapse. 9. There is eccentric mild to moderate mitral valve regurgitation. 10. There is mild to moderate tricuspid valve regurgitation. 11. Mild pulmonary hypertension, estimated pulmonary arterial systolic pressure is 46 mmHg. Left Ventricle E/e' 16 is elevated. Global longitudinal strain is normal -23.2%. Left ventricular chamber dimension is normal. Left ventricular systolic function is normal, estimated at 60-65%. The left ventricular diastolic function is abnormal. Right Ventricle Right ventricular systolic function is normal and with normal TAPSE 2.7 cm. Right ventricular chamber dimension is normal. Left Atria Left atrial chamber dimension is moderately enlarged. Right Atria Right atrial chamber dimension is normal. Aortic Valve The aortic valve is trileaflet. There is no aortic valve stenosis. There is no aortic valve regurgitation. Pulmonic Valve There is no pulmonic regurgitation. Mitral Valve The mitral valve has moderately thickened leaflets and severe posterior prolapse. There is eccentric mild to moderate mitral valve regurgitation. There is no mitral valve stenosis. Tricuspid Valve There is mild to moderate tricuspid valve regurgitation. Mild pulmonary hypertension, estimated pulmonary arterial systolic pressure is 46 mmHg. Pericardium/Pleural There is no pericardial effusion. Inferior Vena Cava Normal inferior vena cava with >50% collapse upon inspiration consistent with normal right atrial pressure, 5 mmHg. Aorta The aortic root size at the sinus of Valsalva is normal. Left Ventricular Outflow Tract Name Value Normal LVOT 2D LVOT Diameter 2.0 cm LVOT Doppler LVOT Peak Gradient 4 mmHg LVOT Mean Gradient 2 mmHg LVOT VTI 19 cm LVOT VTI/AV VTI Ratio 0.8 LVOT Stroke Volume 59 ml
== END 2022-04-29 13:17 | disposition home or self-care (01) ==
LOC: ANHCARD 13:17
PROVIDERS: PCP Nurse Practitioner; Visit Provider Internal Medicine Cardiovascular Disease
DX: I08.3 Combined rheumatic disorders of mitral, aortic and tricuspid valves (principal)
CPT/HCPCS: 93306

== ENCOUNTER 2022-05-23 09:20 | Outpatient (CLI) | payer MEDICARE, SELFPAY ==
--- NOTE | ~2022-05-23 | CT_ITS ---
Clinical Indication: Endometrial carcinoma CT Scan of the Chest, Abdomen, and Pelvis with Contrast: Technique: Contiguous sections were acquired throughout the chest, abdomen, and pelvis after intraven ous administration of 100 cc of Omnipaque 350. Dose reduction technique was used on this scan by uti lizing automated exposure control and iterative reconstruction technique. The dose-length product (DL P) was 510.09 mGy-cm. COMPARISON: 02/12/2022 Findings: There is no evidence of any significant mediastinal, hilar or axillary lymphadenopathy. The mediastin al soft tissues appear normal.) Right subclavian artery noted. There is no evidence of pleural or pericardial effusion. Left perihilar nodule is increased in size and extent of solid component, now measuring 3.3 cm in max imum diameter (axial image 66). Right middle lobe lesion is also increased in size, now measuring up to 3.5 cm in maximum diameter (axial image 72). Medial left lower lobe lesion demonstrates mild incre ase in solid component (axial image 81). Additional multiple right lower lobe lesions are minimally i ncreased from prior exam, largest lesion measuring 4 cm in diameter. The liver, spleen, pancreas, gallbladder, adrenals and kidneys are within normal limits. There are atherosclerotic calcifications of the aorta. No lymphadenopathy. No bowel obstruction or bowel wall thickening. There is no evidence to suggest acute appendicitis. Urinary bladder is unremarkable. Patient is post hysterectomy. No definite pelvic mass seen. Trace fr ee fluid present in the pelvis. Stable compression fractures of T11, T12, and L2. Impression: Interval progression of pulmonary metastatic disease. Multiple pulmonary nodules are mildly increased in size and extent of solid components. Stable compression fractures of T11, T12, and L2. Reviewed, dictated and finalized at [facility]. Impression: Interval progression of pulmonary metastatic disease. Multiple pulmonary nodule s are mildly increased in size and extent of solid components. Stable compression fractures of T11, T12, and L2.
[2022-05-23 09:48] LABS: Estimated Glomerular Filt Rate > 60
== END 2022-05-23 09:21 | disposition home or self-care (01) ==
PROVIDERS: PCP Nurse Practitioner; Visit Provider Internal Medicine Hematology & Oncology
DX: C54.1 Malignant neoplasm of endometrium (principal); C78.00 Secondary malignant neoplasm of unspecified lung; M48.54XA Collapsed vertebra, not elsewhere classified, thoracic region, initial encounter for fracture
CPT/HCPCS: 36415; 71260; 74177; 80053; 85025; 86304; Q9967

== ENCOUNTER 2022-08-14 10:06 | Outpatient (CLI) | payer MEDICARE, SELFPAY ==
--- NOTE | ~2022-08-14 | CT_ITS ---
Clinical Indication: Endometrial carcinoma CT Scan of the Chest with Contrast: Technique: Contiguous sections were acquired throughout the chest after intravenous administration of 75 cc of Omnipaque 350. Dose reduction technique was used on this scan by utilizing automated exposu re control and iterative reconstruction technique. The dose-length product (DLP) was 135.77 mGy-cm. COMPARISON: 05/23/2022 Findings: There is no evidence of any significant mediastinal, hilar or axillary lymphadenopathy. There is no f illing defect in the pulmonary arterial tree to suggest pulmonary embolus. There is no evidence of ao rtic dissection or aneurysm. Aberrant right subclavian artery noted. There is no evidence of pleural or pericardial effusion. Bilateral pulmonary nodules are stable in distribution from prior exam, but most lesions are decrease d in size, with some increased cavitation several lesions. The largest lesion at the right lung base is only minimally decreased, and currently measures 3.5 cm in diameter (axial image 93). Images through the upper abdomen reveal no abnormalities. Compression fractures of T11, T12, L2 are s imilar to prior exam. Impression: Pulmonary metastatic lesions, as detailed above, mildly improved from prior exam. Findings suggest mi ld partial interval response to therapy. Stable compression fractures of T11, T12, and L2. Reviewed, dictated and finalized at location [facility]. Impression: Pulmonary metastatic lesions, as detailed above, mildly improved from prior exa m. Findings suggest mild partial interval response to therapy. Stable compression fractures of T11, T12, and L2.
== END 2022-08-14 10:07 | disposition home or self-care (01) ==
PROVIDERS: PCP Nurse Practitioner Family; Visit Provider Internal Medicine Hematology & Oncology
DX: C54.1 Malignant neoplasm of endometrium (principal); S22.080A Wedge compression fracture of T11-T12 vertebra, initial encounter for closed fracture; S32.020A Wedge compression fracture of second lumbar vertebra, initial encounter for closed fracture; X58.XXXA Exposure to other specified factors, initial encounter
CPT/HCPCS: 71260; Q9967

== ENCOUNTER 2022-11-10 12:32 | Outpatient (CLI) | payer MEDICARE, SELFPAY ==
--- NOTE | ~2022-11-10 | CT_ITS ---
Clinical Indication: Endometrial carcinoma CT Scan of the Chest with Contrast: Technique: Contiguous sections were acquired throughout the chest after intravenous administration of 75 cc of Omnipaque 350. Dose reduction technique was used on this scan by utilizing automated exposu re control and iterative reconstruction technique. The dose-length product (DLP) was 130.76 mGy-cm. COMPARISON: 08/14/2022 Findings: There is no evidence of any significant mediastinal, hilar or axillary lymphadenopathy. Aberrant righ t subclavian artery noted. There is no filling defect in the pulmonary arterial tree to suggest pulmo nary embolus. There is no evidence of aortic dissection or aneurysm. There is left atrial enlargement . There is no evidence of pleural or pericardial effusion. 3.6 cm right lower lobe pulmonary mass is essentially unchanged from prior exam (axial image 87). Irr egular cavitary lesions with nodularity in the right lower lobe also essentially unchanged (axial efrem ges 87, 80). Right middle lobe nodule measures 2.7 cm in maximum diameter, unchanged. Partially cavit marion lesion with nodularity in the left lower lobe is unchanged, measuring up to 2.9 cm in diameter. S maller left basilar cavitary lesion is also unchanged (axial image 74). There is mild biapical scarri ng. Images through the upper abdomen reveal no abnormalities. There are stable compression deformities of T11, T12, and L2. Impression: Multiple pulmonary masses/nodules are essentially stable from prior exam, largest measuring 3.6 cm th e right lower lobe. Most of the lesions demonstrate partial cavitary/cystic change, similar to prior exam. Stable compression deformities of T11, T12, and L2. Reviewed, dictated and finalized at location [facility]. Impression: Multiple pulmonary masses/nodules are essentially stable from prior exam, large st measuring 3.6 cm the right lower lobe. Most of the lesions demonstrate parti al cavitary/cystic change, similar to prior exam. Stable compression deformities of T11, T12, and L2.
== END 2022-11-10 12:33 | disposition home or self-care (01) ==
PROVIDERS: PCP Nurse Practitioner Family; Visit Provider Internal Medicine Hematology & Oncology
DX: C54.1 Malignant neoplasm of endometrium (principal); R91.8 Other nonspecific abnormal finding of lung field
CPT/HCPCS: 71260; Q9967

== ENCOUNTER 2023-01-26 09:26 | Outpatient (CLI) | payer MEDICARE, SELFPAY ==
--- NOTE | ~2023-01-26 | CT_ITS ---
Clinical Indication: Endometrial carcinoma CT Scan of the Chest with Contrast: Technique: Contiguous sections were acquired throughout the chest after intravenous administration of 75 cc of Omnipaque 350. Dose reduction technique was used on this scan by utilizing automated exposu re control and iterative reconstruction technique. The dose-length product (DLP) was 139.73 mGy-cm. COMPARISON: 11/10/2022 Findings: There is no evidence of any significant mediastinal, hilar or axillary lymphadenopathy. There is no f illing defect in the pulmonary arterial tree to suggest pulmonary embolus. There is no evidence of ao rtic dissection or aneurysm. Aberrant right subclavian artery noted. There is no evidence of pleural or pericardial effusion. Multiple pulmonary nodules, some which demonstrate areas of apparent cavitation, are similar to prior exam. Largest nodules at the right lung base measuring 3.6 cm (axial image 99). There are additional lesions in the right middle lobe, left lower lobe, as well as additional right lower lobe lesions. Images through the upper abdomen reveal no abnormalities. Stable compression deformities of T11, T12, and L2 are present. Impression: Multiple pulmonary nodules/masses are essentially unchanged from prior exam, compatible stable metast atic disease. Stable compression fractures of T11, T12, and L2. Reviewed, dictated and finalized at location . RA ENGINEER Impression: Multiple pulmonary nodules/masses are essentially unchanged from prior exam, co mpatible stable metastatic disease. Stable compression fractures of T11, T12, and L2.
== END 2023-01-26 09:27 | disposition home or self-care (01) ==
PROVIDERS: PCP Nurse Practitioner Family; Visit Provider Internal Medicine Hematology & Oncology
DX: C54.1 Malignant neoplasm of endometrium (principal); R91.8 Other nonspecific abnormal finding of lung field; S22.080D Wedge compression fracture of T11-T12 vertebra, subsequent encounter for fracture with routine healing; X58.XXXD Exposure to other specified factors, subsequent encounter
CPT/HCPCS: 71260; Q9967

== ENCOUNTER 2023-05-18 09:00 | Outpatient (CLI) | payer MEDICARE, SELFPAY ==
--- NOTE | ~2023-05-18 | CT_ITS ---
Clinical Indication: Endometrial carcinoma CT Scan of the Chest with Contrast: Technique: Contiguous sections were acquired throughout the chest after intravenous administration of 75 cc of Omnipaque 350. Dose reduction technique was used on this scan by utilizing automated exposu re control and iterative reconstruction technique. The dose-length product (DLP) was 143.21 mGy-cm. COMPARISON: 01/26/2023 Findings: There is no evidence of any significant mediastinal, hilar or axillary lymphadenopathy. There is no f illing defect in the pulmonary arterial tree to suggest pulmonary embolus. There is no evidence of ao rtic dissection or aneurysm. Aberrant right subclavian artery noted. There is no evidence of pleural or pericardial effusion. Pulmonary masses the right middle lobe (axial image 74), right lower lobe (axial images 96, 92, 98), and left lower lobe (axial images 69-77) are stable in distribution, though probably minimally increa sed in terms of size and/or extent of solid component. Images through the upper abdomen reveal no abnormalities. Stable compression fractures of T11, T12, a nd L2 are noted. Impression: Pulmonary metastatic lesions are probably minimally increased in size from prior exam, suggestive of minimal interval progression. Stable compression fractures, as above. Reviewed, dictated and finalized at location . Impression: Pulmonary metastatic lesions are probably minimally increased in size from prio r exam, suggestive of minimal interval progression. Stable compression fractures, as above.
== END 2023-05-18 09:01 | disposition home or self-care (01) ==
PROVIDERS: PCP Nurse Practitioner Family; Visit Provider Nurse Practitioner Family
DX: C54.1 Malignant neoplasm of endometrium (principal)
CPT/HCPCS: 71260; Q9967

== ENCOUNTER 2023-06-15 12:34 | Outpatient (CLI) | payer MEDICARE, SELFPAY ==
--- NOTE | 2023-06-15 12:42 | ECHO_ITS ---
Patient Info Name: Kailee Marques Age: 78 years : 1945 Gender: Female Ht: 60 in Wt: 131 lbs BSA: 1.60 m2 HR: 81 bpm BP: 156 / 84 mmHg Heart Rhythm: Sinus Rhythm Technical Quality: Good Exam Date: 06/15/2023 12:46 PM Exam Location: Echo Lab Patient Status: Outpatient Admit Date: 06/15/2023 Staff Ordering Physician: Frank Menjivar DO Accounts Payable Professional: Demi Alonzo RDCS Attending Provider: Frank Menjivar DO Referring Physician: Otto CARR; Exam Type: CA echo dop color flow w con Study Info Indications I34.1 - Nonrheumatic mitral (valve) prolapse Complete two-dimensional, color flow and Doppler transthoracic echocardiogram is performed. Strain analysis performed. Summary 1. Complete two-dimensional, color flow and Doppler transthoracic echocardiogram is performed. 2. Left ventricular chamber dimension is normal. 3. Left ventricular systolic function is normal, estimated at 65-70%. 4. The left ventricular diastolic function is grade II diastolic dysfunction. 5. E/e' 19 is elevated. 6. Global longitudinal strain is normal at -20.4%. 7. Left atrial chamber dimension is severely enlarged. 8. Suspected small patent foramen ovale visualized by color flow imaging. 9. The mitral valve has mildly thickened leaflets and severe posterior prolapse. 10. There is mild mitral valve regurgitation. 11. There is mild to moderate tricuspid valve regurgitation. 12. No pulmonary hypertension, estimated pulmonary arterial systolic pressure is 37 mmHg. Left Ventricle E/e' 19 is elevated. Global longitudinal strain is normal at -20.4%. Left ventricular chamber dimension is normal. Left ventricular systolic function is normal, estimated at 65-70%. The left ventricular diastolic function is grade II diastolic dysfunction. Right Ventricle Right ventricular systolic function is normal and with normal TAPSE 2.1 cm. Right ventricular chamber dimension is normal. Left Atria Left atrial chamber dimension is severely enlarged. Right Atria Right atrial chamber dimension is normal. Atrial Septum Suspected small patent foramen ovale visualized by color flow imaging. Aortic Valve The aortic valve is trileaflet. There is no aortic valve stenosis. There is no aortic valve regurgitation. Pulmonic Valve There is no pulmonic regurgitation. Mitral Valve The mitral valve has mildly thickened leaflets and severe posterior prolapse. There is no mitral valve stenosis. There is mild mitral valve regurgitation. Tricuspid Valve There is mild to moderate tricuspid valve regurgitation. No pulmonary hypertension, estimated pulmonary arterial systolic pressure is 37 mmHg. Pericardium/Pleural There is no pericardial effusion. Inferior Vena Cava Normal inferior vena cava with >50% collapse upon inspiration consistent with normal right atrial pressure, 5 mmHg. Aorta The aortic root size at the sinus of Valsalva is normal. Tricuspid Valve Name Value Normal Estimated PAP/RSVP RA Pressure 5 mmHg <=5 Report Signatures
== END 2023-06-15 12:35 | disposition home or self-care (01) ==
LOC: ANHCARD 12:35
PROVIDERS: PCP Nurse Practitioner Family; Visit Provider Internal Medicine Cardiovascular Disease
DX: I34.1 Nonrheumatic mitral (valve) prolapse (principal)
CPT/HCPCS: 93306

== ENCOUNTER 2023-08-11 09:59 | Outpatient (CLI) | payer MEDICARE, SELFPAY ==
--- NOTE | ~2023-08-11 | CT_ITS ---
CT diagnostic chest w con Ordering provider: Tesfaye Alfaro MD History: 78 years Female with . RECURRENT CARCINOMA OF ENDOMETRIUM . Comparison: May 18, 2023 Technique: CT chest with IV contrast. Radiation reduction technique utilized. DLP is 148.49 mGy. 75 mL of Omnipaque 350 was given IV. Findings: VISUALIZED THORACIC INLET: Normal. A right Port-A-Cath with the tip in the superior vena cava. MEDIASTINUM: Aorta/coronary arteries: The thoracic aorta is normal. Aberrant right subclavian artery is noted. Asc ending aorta measures 3.2 cm. Heart/other: The heart is not enlarged. Lymph nodes: No mediastinal or hilar lymphadenopathy. LUNGS: Mass in the right middle lobe measuring 3.2 x 1.7 cm. Atelectatic changes near to the left hil ar mass is noted. Another mass is seen in the right lower lobe laterally measuring 3.7 x 3.6 cm. Left parahilar mass is seen which measures 2.1 x 2.9 cm. This mass is larger than the previous study. 2 atelectatic changes versus pneumonia versus a mass in the right lower lobe posteriorly.. No infiltr ates or effusions. No pneumothorax. VISUALIZED UPPER ABDOMEN: Small sliding hiatus hernia. Slightly prominent pancreatic duct. Otherwise, the visualized upper abdomen is normal. MUSCULOSKELETAL: Soft tissues: The superficial soft tissues are normal. Bones: Age appropriate degenerative changes of the spine. Multiple compression fractures in the lower thoracic and upper lumbar area unchanged from previous examination. IMPRESSION: Multiple masses in the right and left lungs with slight progression of the mass seen in the left aly hilar area. Aberrant right subclavian artery. Other appearances are unchanged from previous examination. Reviewed, dictated and finalized at location A. IMPRESSION: Multiple masses in the right and left lungs with slight progression of the mass seen in the left perihilar area. Aberrant right subclavian artery. Other appearances are unchanged from previous examination.
== END 2023-08-11 10:00 | disposition home or self-care (01) ==
PROVIDERS: PCP Nurse Practitioner Family; Visit Provider Internal Medicine Hematology & Oncology
DX: C54.1 Malignant neoplasm of endometrium (principal)
CPT/HCPCS: 71260; Q9967

== ENCOUNTER 2023-11-03 09:22 | Outpatient (CLI) | payer MEDICARE, SELFPAY ==
--- NOTE | ~2023-11-03 | CT_ITS ---
Clinical Indication: Endometrial carcinoma CT Scan of the Chest, Abdomen, and Pelvis with Contrast: Technique: Contiguous sections were acquired throughout the chest, abdomen, and pelvis after intraven ous administration of 100 cc of Omnipaque 350. Dose reduction technique was used on this scan by uti reddying automated exposure control and iterative reconstruction technique. The dose-length product (DL P) was 569.25 mGy-cm. Comparison: 08/11/2023 Findings: There is no evidence of any significant mediastinal, hilar or axillary lymphadenopathy. Aberrant righ t subclavian artery noted. No aortic aneurysm or dissection seen. No pulmonary embolus. There is no evidence of pleural or pericardial effusion. 3.6 x 2.1 cm right middle lobe mass is mildly increased in size from prior exam. 3.1 cm mass in the l eft lower lobe abutting the fissure is also mildly increased from prior exam. Stable partially cystic lesion in the left lower lobe (axial image 83). 4.0 cm right lower lobe mass is mildly increased. Ad ditional mixed solid and cystic nodules in the right lower lobe demonstrate probable minimal increase in solid components. The liver, spleen, pancreas, gallbladder, adrenals and kidneys are within normal limits. There are at herosclerotic calcifications of the aorta. No lymphadenopathy. Suspected wall thickening extensive involving the rectum and sigmoid colon.. No bowel obstruction. No abscess or free air. Urinary bladder is unremarkable. Small amount of free fluid present in the pelvis. No pelvic mass see n. Status post hysterectomy. Stable compression fractures of T12 and L2. Impression: Multiple pulmonary metastatic lesions are mildly progressed from prior exam, as detailed above. Suspected extensive wall thickening of the rectum and sigmoid colon. Correlate for infectious/inflamm atory colitis. No abscess or obstruction. Stable compression fractures, as above. Reviewed, dictated and finalized at [facility]. Impression: Multiple pulmonary metastatic lesions are mildly progressed from prior exam, as detailed above. Suspected extensive wall thickening of the rectum and sigmoid colon. Correlate for infectious/inflammatory colitis. No abscess or obstruction. Stable compression fractures, as above.
== END 2023-11-03 09:23 | disposition home or self-care (01) ==
PROVIDERS: PCP Nurse Practitioner Family; Visit Provider Internal Medicine Hematology & Oncology
DX: C54.1 Malignant neoplasm of endometrium (principal)
CPT/HCPCS: 71260; 74177; Q9967

== ENCOUNTER 2024-01-26 09:31 | Outpatient (CLI) | payer MEDICARE, SELFPAY ==
--- NOTE | ~2024-01-26 | CT_ITS ---
Clinical Indication: Endometrial carcinoma CT Scan of the Chest, Abdomen, and Pelvis with Contrast: Technique: Contiguous sections were acquired throughout the chest, abdomen, and pelvis after intraven ous administration of 100 cc of Omnipaque 350. Dose reduction technique was used on this scan by shaila blakelying automated exposure control and iterative reconstruction technique. The dose-length product (DL P) was 430.90 mGy-cm. Comparison: 11/03/2023 Findings: There is no evidence of any significant mediastinal, hilar or axillary lymphadenopathy. Aberrant righ t subclavian artery noted. No aortic aneurysm or dissection. No central pulmonary embolus. There is no evidence of pleural or pericardial effusion. 4.1 x 3.1 cm right middle lobe mass is essentially stable from prior exam. 3.5 x 2.9 cm left lower lo be mass is mildly increased from prior exam (axial image 65), with adjacent nodule also similar to mi ldly increased (axial image 73). 4.0 cm right lower lobe pulmonary nodule/mass is similar to prior ex am (axial image 94). Additional irregular nodules with focal areas of cavitation or irregular areas i n the right lower lobe also essentially unchanged, measuring 2.4 cm in diameter (axial image 80), and 2.0 cm (axial image 94). The liver, spleen, pancreas, gallbladder, adrenals and kidneys are within normal limits. There are a therosclerotic calcifications of the aorta. No lymphadenopathy. No bowel obstruction. Stable mild wall thickening distal rectum/sigmoid:. Urinary bladder is unremarkable. No pelvic mass seen. Status post hysterectomy. No ascites. Stable compression fractures of T12 and L2. Stable minimal compression fracture of T11. 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 Impression: Multiple pulmonary nodules/masses, compatible metastatic disease. Distribution is unchanged. Left low er lobe lesion is mildly increased in size, remaining lesions are stable. Stable possible mild wall thickening of the rectum/sigmoid colon. Correlate for infectious/inflammato ry colitis, or possibly postradiation change at the relevant history. Stable spinal compression fractures, as above. Reviewed, dictated and finalized at location [facility]. TECHNOLOGIST Impression: Multiple pulmonary nodules/masses, compatible metastatic disease. Distribution is unchanged. Left lower lobe lesion is mildly increased in size, remaining les ions are stable. Stable possible mild wall thickening of the rectum/sigmoid colon. Correlate for infectious/inflammatory colitis, or possibly postradiation change at the relev ant history. Stable spinal compression fractures, as above.
== END 2024-01-26 09:32 | disposition home or self-care (01) ==
PROVIDERS: PCP Nurse Practitioner Family; Visit Provider Internal Medicine Hematology & Oncology
DX: C54.1 Malignant neoplasm of endometrium (principal); R91.8 Other nonspecific abnormal finding of lung field
CPT/HCPCS: 71260; 74177; Q9967

== ENCOUNTER 2024-05-09 08:30 | Outpatient (CLI) | payer MEDICARE, SELFPAY ==
--- NOTE | ~2024-05-09 | CT_ITS ---
Clinical Indication: Secondary malignancy of liver CT Scan of the Chest with Contrast: Technique: Contiguous sections were acquired throughout the chest after intravenous administration of 75 cc of Omnipaque 350. Dose reduction technique was used on this scan by utilizing automated exposu re control and iterative reconstruction technique. The dose-length product (DLP) was 140.17 mGy-cm. COMPARISON: 01/26/2024 Findings: There is no evidence of any significant mediastinal, hilar or axillary lymphadenopathy. There is no f illing defect in the pulmonary arterial tree to suggest pulmonary embolus. There is no evidence of ao rtic dissection or aneurysm. Aberrant right subclavian artery noted. There is no evidence of pleural or pericardial effusion. Large bilateral pulmonary nodules/masses are essentially unchanged, involving the right middle and bi lateral lower lobes. Images through the upper abdomen reveal no abnormalities. Stable compression fractures of T12 and L2. Impression: Stable bilateral pulmonary nodules/masses, compatible with metastatic disease. Stable compression fractures of T12 and L2. Reviewed, dictated and finalized at location . Impression: Stable bilateral pulmonary nodules/masses, compatible with metastatic disease. Stable compression fractures of T12 and L2.
--- OUTSIDE RECORDS SUMMARY | 2024-05-09 08:54 | XMS_ITS | Encounter Summary ---
Author Organization [facility] Address [address] [place] [address] Care Team Providers Care Rod Pointer Name Role Phone Jose Miguel Worrell MD Primary Care Provider Encounter Details Date Type Department Care Team (Latest Contact Info) Description 03/12/2006 Outpatient Historical [facility],NON-PATIENT Conversion, History Malignant Neoplasm of Corpus Uteri, except Isthmus (CMS/HCC) (Primary Dx) Social History Tobacco Use Types Packs/Day Years Used Date Smoking Tobacco: Never Assessed Comments Unknown Sex and Gender Information Value Date Recorded Sex Assigned at Not on file Legal Sex Female 5:22 AM [employer] Gender Identity Not on file Sexual Orientation Not on file documented as of this encounter Plan of Treatment Upcoming Encounters Date Type Department Care Team (Late st Contact Info) Description 05/17/2024 11:00 AM CDT Office Visit [facility] Oncology [facility] H[facility]ology [facility] [address] [facility] [address] [place] [address] Tesfaye Alfaro MD [address] [facility] [address] [place] [address] documented as of this encounter Visit Diagnoses Diagnosis Malignant neoplasm of corpus uteri, except isthmus (CMS/HCC)- Primary Malignant neoplasm of corpus uteri, except isthmus documented in this encounter Care Teams Rod Pointer Relationship Specialty Start Date End Date Jose Miguel Worrell MD [address] [place] [address] PCP - General Family Practice 10/25/19 documented as of this encounter
--- OUTSIDE RECORDS SUMMARY | 2024-05-09 08:55 | XMS_ITS | Continuity of Care Document ---
Author Organization [employer] [facility] [place] Address [address] [place] [address] Phone Care Team Providers Care Hotel Security Officer Name Role Phone Yasmany PIRES, Vanessa Unavailable Unavailable Allergies, Adverse Reactions, Alerts Substance Reaction Status Criticality cyclobenzaprine Active No Informati on ibuprofen Active No Information cortisone Active No Information prednisone Active No Information acetaminophen Active No Information tramadol Active No Information propoxyphene Active No Information oxycodone Active No Information morphine Active No Information hydrocodone Active No Information CODEINE HCL Active No Information Medications Medication Instructions Dosage Effective Dates (start - stop) Status Comments dorzolamide 22.3 mg-timolol 6.8 mg/mL eye drops instill 1 drop by ophthalmic route 2 times every day into both eye(s) - Active iVizia (PF) 0.5 % eye drops instill 1 drop by ophthalmic route 2 times every day 1 drop - Active latanoprost 0.005 % eye drops INSTILL 1 DROP IN BOTH EYES EVERY DAY AT BEDTIME - Active Calcium 600 600 mg calcium (1,500 mg) tablet take 1 capsule by oral route 2 times every day 1 capsule - Active atorvastatin 40 mg tablet take 1 tablet by oral route every day 40 MG - Active carvedilol 3.125 mg tablet take 1 tablet by oral route 2 times every day with food 3.125 MG - Active tramadol 50 mg tablet take 1 tablet by o ral route every 6 hours as needed 50 MG - Active Co Q-10 100 mg capsule take one tablet daily - Active krill oil 300 mg-90 mg-24 mg-50 mg capsule take one tablet daily - Active magnesium 200 mg tablet take one tablet daily - Active multivitamin tablet take one tablet daily - Active Ocuvite 150 mg-30 unit-5 mg-150 mg capsule take one tablet daily - Active Vitamin D3 5,000 unit tablet take one tablet daily - Active BIOTENE BUCCAL ADH. PATCH take one tablet daily - Active Procedures Procedure Date No Charge Optomap Fundus Photos Office/outpatient Visit, Est Visual Field Examination(s) No Charge GDX Posterior Segment No Charge Refraction No Charge Optomap Fundus Photos SCODI, Retina Eye Exam & Treatment No Charge Optomap Fundus Photos 024 SCODI, Posterior Segment Office/outpatient Visit, Est Fundus Photography W/ Report Visual Field Examination(s) Eye Exam & Treatment No Charge Optomap Fundus Photos 023 SCODI, Posterior Segment Office/outpatient Visit, Est Fundus Photography W/ Report Visual Field Examination(s) Eye Exam & Treatment SCODI, Posterior Segment No Charge Optomap Fundus Photos 022 Eye Exam & Treatment Fundus Photography W/ Report Visual Field Examination(s) Office/outpatient Visit, Est SCODI, Posterior Segment No Charge Optomap Fundus Photos Eye Exam & Treatment Fundus Photography W/ Report Office/outpatient Visit, Est No Charge Optomap Fundus Photos 020 Visual Field Examination(s) SCODI, Posterior Segment Eye Exam & Treatment SCODI, Posterior Segment Office/outpatient Visit, Est No Charge Optomap Fundus Photos Oct-05-11 019 Fundus Photography W/ Report Office/outpatient Visit, Est Office/outpatient Visit, Est Trabeculoplasty By Laser SX Post-op Follow-up Visit Special Eye Evaluation Nov- SCODI, Posterior Segment Oct- After Cataract Laser Surgery Eye Exam & Treatment No Charge Refraction No Charge Refraction Visual Field Examination(s) Office/outpatient Visit, Est No Charge Refraction SCODI, Posterior Segment Oct- Office/outpatient Visit, Est After Cataract Laser Surgery No Charge Refraction Office/outpatient Visit, Est Visual Field Examination(s) Office/outpatient Visit, Est Visual Field Examination(s) SCODI, Posterior Segment Eye Exam & Treatment Visual Field Examination(s) Office/outpatient Visit, Est Office/outpatient Visit, Est Post-op Follow-up Visit Post-op Follow-up Visit No Charge Refraction Remove Cataract, Post Op Care 5 Cyclophotocoag,endoscopic Remove Cataract, Insert Lens,Comanaged N ov Cyclophotocoag,endoscopic,comanaged IOLMaster-Professional No Charge Refraction Post-op Follow-up Visit Remove Cataract, Post Op Care 5 Cyclophotocoag,endoscopic Remove Cataract, Insert Lens,Comanaged O ct Cyclophotocoag,endoscopic,comanaged IOLMaster-Professional No Charge IOL Master Office/outpatient Visit, Est No Charge Refraction Fundus Photography W/ Report Office/outpatient Visit, Est IOLMaster-Technical Fundus Photography W/ Report Eye Exam, New Patient Visual Field Examination(s) Fundus Photography W/ Report Advance Directives Directive Yes / No Effective Date File Name No Information Encounters Encounter Description Practice Location Reason(s) For Visit Diagnoses Date Provider Providers Copied on Encounter Office/outpa tient Visit, [facility] [employer] [facility], [address], [place], [place], [address], tel:[phone] SEC Avinash [facility] Professional 1 Mo IOP Check (chief complaint) Primary open-angle glaucoma, bilateral, severe stageKeratoco njunctivitis sicca, not specified as Sjogren's, bilateral Apr-0 5-202 5 Yasmany OD Vanessa. [address], [address], [place], [place], [address], [place]. tel:[phone] Referring Provider: Toby Quiñones, [address] [facility], [place], [address]. tel:[phone] [employer] [facility], [address], [place], [place], [address], [place] tel:[phone] SEC [facility] Professional Complete Exam (chief complaint) Pseudophakia, both eyesVitreous degeneration, bilateralKera toconjunctivi tis sicca, not specified as Sjogren's, bilateralPrim marion open-angle glaucoma, bilateral, severe stagePuckerin g of macula, right eye 0202 5 Yasmany OD Vanessa. [address], [address], [place], [place], [address], [place]. tel:[phone] Referring Provider: Toby Quiñones, [address] [facility] [place], [place], [address]. tel:[phone] Office/outpa tient Visit, [facility] [employer] [place], [facility], [address] [employer] [address], [place], [place], [address], [place] tel:[phone] SEC Avinash ECHAVARRIA Professional glaucoma, pressure check (chief complaint) Primary open-angle glaucoma, bilateral, moderate stagePseudoph florencio, both eyes 4 Yasmany OD Vanessa. [facility] [address], [address], [place], [place], [address], [place]. tel:[phone] Referring Provider: Toby Quiñones, [address] [facility] [email or web address] [facility] [place], [place], [address]. tel:[phone] [facility], [address] [employer] [address], [place], [place], [address], [place] tel:[phone] SEC Avinash ECHAVARRIA Professional Complete Exam (chief complaint) Pseudophakia, both eyesPrimary open-angle glaucoma, bilateral, moderate stageVitreous degeneration, bilateral 3 Yasmany OD Vanessa. [facility] [address], [address], [place], [place], [address], [place]. tel:[phone] Referring Provider: Toby Quiñones, [address] [employer] [facility], [place], [address]. tel:[phone] [facility], [facility] [address], [place], [place], [address], [place] tel:[phone] SEC Avinash ECHAVARRIA Professional No Information 3 Ivan Bailey. [facility] [address], [address], [place], [place], [address], [place]. tel:[phone] Office/outpa tient Visit, Est [facility], [facility] [address], [place], [place], [address], [place] tel:[phone] SEC Avinash ECHAVARRI[place] Professional IOP (chief complaint) Primary open angle glaucoma of both eyes, moderate stage Jul- 0 3 Felton Jackson. [address], [place], [place], [address], [place]. tel:[phone] Referring Provider: Toby Quiñones, [address] [facility], [place], [address]. tel:[phone] [facility], [address], [place], [place], [address], [place] tel:[phone] SEC Avinash ECHAVARRIA Professional 6 mo Complete exam (chief complaint) Primary open angle glaucoma of both eyes, moderate stagePseudoph florencio of both eyes Jan-3 0-202 2 Felton Jackson[address], [address], [place], [place], [address], [place]. tel:[phone] Referring Provider: Toby Quiñones, [address] [facility], [place], [address]. tel:[phone] [facility], [address] [place] [address] [address], [place], [place], [address], [place] tel:[phone] SEC Avinash ECHAVARRIA Professional Complete Exam (chief complaint) Primary open angle glaucoma of both eyes, moderate stagePseudoph florencio of both eyes 2 Felton Jackson. [address], [address], [place], [place], [address], [place]. tel:[phone] Referring Provider: Toby Quiñones, [address] [facility], [place], [address]. tel:[phone] Office/outpa tient Visit, [facility], [address], [place], [place], [address], [place] tel:[phone] SEC Avinash ECHAVARRIA Professional 6 month IOP check w/Vf (chief complaint) Primary open angle glaucoma of both eyes, moderate stage Jan- 3- 1 Felton Mathewsson. [address], [address], [place], [place], [address], [place]. tel:[phone] Referring Provider: Toby Quiñones, [address] [facility], [place], [address]. tel:[phone] [facility], [address] [place] [address] [address], [place], [place], [address], [place] tel:[phone] SEC Avinash ECHAVARRI[place] Professional 6 mo Complete exam (chief complaint) Primary open angle glaucoma of both eyes, moderate stagePseudoph florencio of both eyesRPE mottling of maculaSuperfi cial punctate keratitis of both eyes Shalom- 1 Ya Manuel. [address], [address], [place], [place], [address], [place]. tel:[phone] Referring Provider: Toby Quiñones, [address] [facility], [place], [address]. tel:[phone] Office/outpa tient Visit, [facility], [address] [place] [address] [address], [place], [place], [address], [place] tel:[phone] SEC Avinash ECHAVARRIA Professional 6 month IOP check (chief complaint) Primary open angle glaucoma of both eyes, moderate stage Dec- 0 Ya Manuel. [address], [address], [place], [place], [address], [place]. tel:[phone] Referring Provider: Toby Quiñones, [address] [facility], [place], [address]. tel:[phone] [facility], [address] [place] [address] [address], [place], [place], [address], [place] tel:[phone] SEC Avinash ECHAVARRIA Professional Complete Exam (chief complaint) Primary open angle glaucoma of both eyes, moderate stagePseudoph florencio, both eyesRPE mottling of macula Shalom-0 0 Ya Manuel. [address], [place], [place], [address], [place]. tel:[phone] Referring Provider: Toby Quiñones, [address] [facility], [place], [address]. tel:[phone] Office/outpa tient Visit, [facility], [address] [place] [address] [address], [place], [place], [address], [place] tel:[phone] SEC Avinash [facility] Professional 6 month IOP check (chief complaint) Primary open angle glaucoma of both eyes, moderate stage Oct-0 4-201 9 Felton Jackson. [address], [place], [place], [address], [place]. tel:[phone] Referring Provider: Toby Quiñones, [address] [facility], [place], [address]. tel:[phone] Office/outpa tient Visit, [facility], [address] [place] [address] [address], [place], [place], [address], [place] tel:[phone] SEC [facility] Professional SLT (chief complaint) Primary open angle glaucoma of both eyes, moderate stage Apr-1 9-201 9 Felton Jackson. [address], [place], [place], [address], [place]. tel:[phone] Referring Provider: Toby Quiñones, [address] [facility], [place], [address]. tel:[phone] Office/outpa tient Visit, [facility], [address] [place] [address] [address], [place], [place], [address], [place] tel:[phone] SEC [facility] office visit (chief complaint) Primary open angle glaucoma of both eyes, moderate stagePVD (posterior vitreous detachment), right eyeSuperficia l punctate keratitis of both eyes Nov-3 0-201 8 Felton Jackson. [address], [place], [place], [address], [place]. tel:[phone] Referring Provider: Toby Quiñones, [address] [facility], [place], [address]. tel:[phone] [facility], [address], [place], [place], [address], [place] tel:[phone] SEC [facility] YAG PC PO/SLT (chief complaint) Primary open angle glaucoma of left eye, moderate stageEncounte r for examination following surgery 8 Felton Jackson. [address] [facility], [address], [place], [place], [address], [place]. tel:[phone] Referring Provider: Toby Quiñones, [address] [place], [address]. tel:[phone] [facility], [address] [place] [address] [address], [place], [place], [address], [place] tel:[phone] SEC [facility] Professional 6 mo IOP check (chief complaint) Primary open angle glaucoma of both eyes, moderate stagePseudoph florencio, both eyesSuperfici al punctate keratitis of right eyeOther secondary cataract, right eyeRPE mottling of macula 8 Felton Jackson. [address] [facility], [address], [place], [place], [address], [place]. tel:[phone] Referring Provider: Toby Quiñones, [address] [facility], [place], [address]. tel:[phone] Office/outpa tient Visit, Est [facility], [address], [place], [place], [address], [place] tel:[phone] SEC Avinash ECHAVARRI[place] Professional 6 mo IOP check (chief complaint) No Information 8 Felton Jackson. [address] [facility], [address], [place], [place], [address], [place]. tel:[phone] Referring Provider: Toby Quiñones, [address] [facility], [place], [address]. tel:[phone] Office/outpa tient Visit, [facility], [address] [place] [address] [address], [place], [place], [address], [place] tel:[phone] SEC [facility] Professional Yag PC po (chief complaint) No Information Oct-2 7 Felton Jackson. [address], [address], [place], [address], [place]. tel:[phone] Referring Provider: Toby Quiñones, [address] [facility] [place], [place], [address]. tel:[phone] Office/outpa tient Visit, [facility], [address] [place] [address] [address], [place], [place], [address], [place] tel:[phone] SEC [facility] Professional Blurry/dec reased vision (chief complaint) No Information Oct- 7 Felton Jackson. [address], [place], [place], [address], [place]. tel:[phone] Referring Provider: Toby Quiñones, [address] [facility], [place], [address]. tel:[phone] Office/outpa tient Visit, [facility], [address] [place] [address] [address], [place], [place], [address], [place] tel:[phone] SEC [facility] Professional glaucoma, pressure check (chief complaint) No Information June-0 7 Felton Jackson. [address], [place], [place], [address], [place]. tel:[phone] Referring Provider: Toby Quiñones, [address] [facility], [place], [address]. tel:[phone] [facility], [address] [place] [address] [address], [place], [place], [address], [place] tel:[phone] SEC [facility] 6 month IOP check (chief complaint) No Information 6 Felton Jackson. [address], [address], [place], [address], [place]. tel:[phone] Referring Provider: Toby Quiñones, [address] [facility], [place], [place], [address]. tel:[phone] Office/outpa tient Visit, [facility], [address] [place] [address] [address], [place], [place], [address], [place] [phone] SEC [facility] Professional 4 month IOP Check (chief complaint) No Information 6 Felton Jackson. [address], [address], [place], [address], [place]. tel:[phone] Referring Provider: Toby Quiñones, [address] [facility], [place], [place], [address]. tel:[phone] Office/outpa tient Visit, [facility], [address] [place] [address] [address], [place], [place], [address], [place] [phone] SEC [facility]vinash [facility] Professional IOP check OU (chief complaint) No Information 6 Felton Jackson. [address], [address], [place], [address], [place]. tel:[phone] Referring Provider: Toby Quiñones, [address] [facility], [place], [address]. tel:[phone] [facility], [address] [place] [address] [address], [place], [place], [address], [place] tel:[phone] SEC [facility] Professional F/u exam, postop (chief complaint) No Information 5 Felton Jackson. [address], [address], [place], [place], [address], [place]. tel:[phone] Referring Provider: Toby Quiñones, [address] [facility], [place], [place], [address]. tel:[phone] [facility], [address], [place], [place], [address], [place] tel:[phone] SEC [facility] Professional 2 week post op (chief complaint) No Information Nov-2 0-201 5 Felton Jackson. [address] [facility], [address], [place], [place], [address], [place]. tel:[phone] Referring Provider: Toby Quiñones, [address] [facility], [place], [place], [address]. tel:[phone] [facility], [address], [place], [place], [address], [place] tel:[phone] SEC [facility] Professional F/u exam, postop (chief complaint) No Information Nov-0 6-201 5 Felton Jackson. [address] [facility], [address], [place], [place], [address], [place]. tel:[phone] Referring Provider: Toby Quiñones, [address] [facility], [place], [place], [address]. tel:[phone] [facility], [address], [place], [place], [address], [place] tel:[phone] [facility] No Information Nov-0 5-201 5 Ivan Bailey. [address], [address], [place], [place], [address], [place]. tel:[phone] Referring Provider: Toby Quiñones, [address] [facility], [place], [place], [address]. tel:[phone] [facility], [address], [place], [place], [address], [place] tel:[phone] SEC [place] [facility] No Information Nov-0 4-201 5 Ivan Leo. [address] [facility] [place] [address], [place], [place], [address], [place]. tel:[phone] Referring Provider: Toby Quiñones, [address] [facility], [place], [place], [address]. tel:[phone] [facility], [address], [place], [place], [address], [place] tel:[phone] SEC Avinash [place] Professional 2 WK PO IOL/ECP OS (chief complaint) No Information Nov-2 0-201 5 Wankum Nomi. [address] [facility], [facility] A, [place], [place], [address], [place]. tel:[phone] Referring Provider: Toby Quiñones, [address] [facility], [place], [address]. tel:[phone] [facility], [address] [place] [address] [address], [place], [place], [address], [place] tel:[phone] SEC Avinash [place] Professional 1 day P/O OS (chief complaint) No Information Nov-0 7-201 5 Wankum Nomi. [address] [facility], [facility] A, [place], [place], [address], [place]. tel:[phone] Referring Provider: Toby Quiñones, [address] [facility], [place], [address]. tel:[phone] [facility], [address], [place], [place], [address], [place] tel:[phone] [facility] No Information Oct-0 6-201 5 Ivan Leo. [address] [facility] [place] [address], [place], [place], [address], [place]. tel:[phone] Referring Provider: Toby Quiñones, [address] [facility], [place], [place], [address]. tel:[phone] [facility], [address] [place] [address] [address], [place], [place], [address], [place] tel:[phone] SEC Clarence Dawkins No Information Oct-0 5-201 5 Ivan Bailey. [address] [place], [place] [address] [employer], [address], [place], [place], [address], [place]. tel:[phone] Referring Provider: Toby Quiñones, [address] [facility], [place], [place], [address]. tel:[phone] [facility], [address] [place] [address] [address], [place], [place], [address], [place] tel:[phone] [facility] No Information Sep-2 9-201 5 Felton Jackson. [address] [facility], [address], [place], [place], [address], [place]. tel:[phone] Referring Provider: Leo Godinez, [address] [place], [place] [address], [place], [address]. tel:[phone] Office/outpa tient Visit, [facility], [address] [place] [address] [address], [place], [place], [address], [place] tel:[phone] SEC [facility]ash [facility] Professional blurry vision (chief complaint) No Information Sep-0 8-201 5 Ivan Bailey. [facility] [address], [address], [place], [place], [address], [place]. tel:[phone] Referring Provider: Toby Quiñones, [address] [facility], [place], [place], [address]. tel:[phone] Office/outpa tient Visit, [facility], [address] [place] [id number], [place], [place], [id number], [place] tel:[phone] [place] Professional Blurry vision (chief complaint) No Information 0- 5 Ivan Bailey. [address] [facility] ([place], [place]), [address], [place], [place], [id number], . tel:[phone] Referring Provider: Toby Quiñones, [address] [place], [address]. tel:[phone] [facility], [address] [facility] [place] [address], [place], [place], [id number], tel:[phone] [facility] Professional Complete Eye Exam (chief complaint) No Information 9 4 Ivan Bailey. [address] [facility] ([place], [place]), [address], [place], [place], [id number], . tel:[phone] Referring Provider: Toby Quiñones, [address] [place], [address]. tel:[phone] Family History Family Member Type Diagnosis Age At Onset Sister Problem (finding) glaucoma Father Problem (finding) degenerative disorder o f macula Payers Payer name Insurance type Covered libertarian ID Authoriza tion(s) [place] [id number] [facility] [id number] Social History Type Description Quantity Date Captured Comments Alcohol Use Details No Caffeine Use Details No Tobacco Use Status Current non-smoker Smoking Status Never smoker Non-Smoking Tobacco Use Details : No Details Available : No Details Available Sex Female Chief Complaint And Reason For Visit From encounter dated '04/13/2024 14:15'. 1 Mo IOP Check (chief complaint). Description: The 78 year old patient presents for evaluation of 1Mo IOP Check in the right eye and left eye. Pt states OU seems a little better since last visit. Pthas been taking all gtts as instructed. Reason For Referral Reason For Referral No Information Plan Of Treatment Date Type Action Status Appointment Kailee Marques BOOKED Patient Education Open-Angle Glaucoma: Ca re Instructions completed Patient Education Reduced Vision: Care In structions completed Patient Education Open-Angle Glaucoma: Ca re Instructions completed Patient Education Learning About Vitreous Detachment completed Patient Education Open-Angle Glaucoma: Ca re Instructions completed Patient Education Reduced Vision: Care In structions completed Patient Education Open-Angle Glaucoma: Ca re Instructions completed Patient Education Open-Angle Glaucoma: Ca re Instructions completed Patient Education Open-Angle Glaucoma: Ca re Instructions completed Patient Education Open-Angle Glaucoma: Ca re Instructions completed Patient Education Open-Angle Glaucoma: Ca re Instructions completed Patient Education Open-Angle Glaucoma: Ca re Instructions completed Patient Education Open-Angle Glaucoma: Ca re Instructions completed History Of Present Illness Encounter Date Complaint History Of Prese nt Illness 1 Mo IOP Check The 78 year old patient presents for evaluation of 1 Mo IOP Check in the right eye and left eye. Pt states OU seems a little better since last visit. Pt has been taking all gtts as instructed. Complete Exam The 78 year old patient presents for evaluation of Complete Exam in the right eye and left eye. Pt states that starting about a month ago they noticed that vision for distance and NV started to become blurry. Pt is taking all gtts as instructed. glaucoma, pressure check The 78 year old patient presents for a 6 month POAG ou IOP check. Patient is using her drops as directed. Patient is pseudo ou with ECP and S/p SLT OS. Patient states sometimes her eyes seem cloudy and she uses Ivizia and it helps. Complete Exam The 77 year old patient presents for evaluation of 6 month Complete Exam in the right eye and left eye. Pt is using Latanoprost QHS OU and Timolol BID OU. Pt states vision is not quite as clear as they were at last visit. Pt states her near vision is more bothersome. Pt uses otc readers. IOP The 77 year old patient presents for evaluation of IOP in the right eye and left eye. Monitoring POAG. Pt using Timolol OU bid and Latanoprost OU qhs. Pt states Ou vision is clear and stable at distance and near x 6 mos. 6 mo Complete exam The 76 year o ld patient presents for evaluation of 6 mo Complete exam with VF 24-2 in the right eye and left eye. Pt reports she is using Timolol BID OU (4:45 am today) and Latanoprost QHS OU (6 pm last night). Pt states she doesn't need refills. Pt reports stable VA, OU, DV and NV, since last appt. Complete Exam The 76 year old patient presents for a complete POAG ou IOP check. patient uses Latanoprost qhs ou and Timolol bid ou. Patient is pseudo ou with ECP and yag caps ou. S/p SLT OS. Patient denies any changes in vision ou. Patient states she doesn't have to have mitral valve sx at this time. 6 month IOP check w/Vf The 75 ye ar old female presents for evaluation of 6 month IOP check w/Vf in the right eye and left eye. Hx of PCIOL w/ECP OU, YAG PC OU, POAG OU, SLT OS, and RPE mottling OS. Patient states some days VA better than others. Patient using Светлана qd OU last used last night and Ronny BID OU last used this am. Tech sent refills to pharm today. 6 mo Complete exam The 75 year o ld female presents for evaluation of 6 mo Complete exam with OCT-ON and Optomap in the right eye and left eye. Hx of PCIOL w/ECP OU, YAG PC OU, POAG OU, SLT OS, and RPE mottling OS. Pt reports she is using Latanoprost QHS OU (9 pm last night) and Timolol BID OU (6:30 am today). Pt denies any changes in VA, OU, DV and NV, x 6 mos. 6 month IOP check The 74 year ol d female presents for evaluation of 6 month IOP check in the right eye and left eye. Hx of PCIOL w/ECP OU, SLT OS, YAG PC OU, RPE Mottling OS, and POAG OU. Patient denies any changes with eyes. Patient using Светлана qd OU last used @ 8pm and Ronny BID OU last used @ 530am. Complete Exam The 74 year old female presents for a complete POAG ou IOP check. Patient is using Latanoprost qhs ou and Timolol bid ou. Patient states Timolol is becoming hard to get and wonders if she could use something different. Patient denies any changes in vision ou. 6 month IOP check The 73 year ol d female presents for evaluation of 6 month IOP check in the right eye and left eye. Hx of POAG OU s/p SLT OD, PCIOL w/ECP OU, and YAG PC OU. Patient denies any problems or changes with eye. Patient using Ronny BID OU last used @ 630am and Светлана qd OU last used @ 9pm. NO refills needed SLT The 72 year old female presents for evaluation of SLT in the right eye. POAG OU, S/P SLT OS. Pt using Timolol BID OU and Latanoprost QHS OU. States she feels pressure building up in OU and Tramadol she has been on seems to make OU feel better. Pt is not able to do VF today due to discomfort. office visit The 72 year old female presents for an office visit. Patient c/o OS has slight pain. Patient had SLT OS 2 weeks ago. Patient is using Latanoprost qhs and Timolol qd ou. Patient states the drops burn OS and they didn't before. Patient c/o she sees a black dot OD that started yesterday. YAG PC PO/SLT The 72 year old female presents for evaluation of YAG PC PO in the right eye and SLT in the left eye. Hx of POAG OU. Pt reports she uses Latanoprost QHS OU and Timolol. Pt reports she last used the Timolol at 5:30 this am and Latanoprost at about 8 pm last night. Pt reports she would like to have SLT instead of adding another gtt. Pt reports VA is a lot better since YAG PC OD. Pt denies any floaters or flashes or lights following YAG PC. Pt denies any pain, irritation or discomfort today, OU. 6 mo IOP check The 72 year old female presents for evaluation of 6 mo IOP check with OTC-ON in the right eye and left eye. Pt reports she uses Latanoprost QHS OU and Timolol BID OU (NEEDS REFILLS) . Pt reports she last used Latanoprost at last night about 10 pm and last used the Timolol at 4:30 am today. Pt reports she thinks her OD needs the laser because she has cloudy VA, OD, and has a hard time reading small print up close, even when she is wearing her gls. Pt reports VA, OS, is about the same. Pt reports OU guzmán a little bit, x several mos, maybe due to crying because of hip pain. Pt reports she is doing an infusion treatment for her cancer. 6 mo IOP check The 71 year old female presents for evaluation of 6 mo IOP check with VF 24-2 in the right eye and left eye. Hx of PCIOL w/ECP OU, POAG OU, and YAG PC OS. Pt reports she is using Latanoprost QHS OU and Timolol BID OU. Pt reports she just finished lung cancer on 05/11/17 and right after the last treatment she noticed her VA is not as clear as it was before the treatments, OS>OD, DV and NV. Pt reports no pain, irritation or discomfort today, but she has noticed her eyelids are swollen, since Chemo, and she just figures it's due to the chemo. Yag PC po The 71 year old female presents for Yag PC po in the left eye. Pt using Latanoprost OU qhs and Timolo OU bid. Pt states OS vision is much clear at distance and near since the Yag procedure. Pt denies getting any floaters. Blurry/decreased vision The 71 y ear old female presents for evaluation of foggy and blurry vision OS. Patient c/o hard to read small print. Patient is using Latanoprost qhs ou and Timolol 0.5% bid ou. Patient is pseudo ou with ECP. glaucoma, pressure check The 71 year old female presents for a 6 month POAG ou IOP check. Patient has hx of CE ou with ECP. Patient uses Timolol 0.5% bid ou and Latanoprost qhs ou. 6 month IOP check The 70 year ol d female presents for 6 month IOP check OU, HVF 24-2 and OCT ON. Patient has hx of PCIOL w/ ECP and POAG (mild stage) OU. Patient is currently using Latanoprost QHS OU and Timolo BID OU. She reports stable vision OU. She denies pain, discomfort or irritation OU. 4 month IOP Check The 70 year ol d female presents for 4 month IOP Check and HVF. Pt has hx of Phaco PCIOL w/ ECP OU, Glaucoma OU, Pt uses Xalatan QD OU. Pt states OS gets blurry occasionally but gets better after blinking. Pt has no pain, discomfort or irritation OU. IOP check OU The 69 year old female presents for a 1 month IOP check OU following CE c ECP OU. Pt denies any pain or discomfort. Pt states v/a OU is stable, without complaints. Pt is using Combigan BID OU. F/u exam, postop The 69 year old female presents for a 1 month s/p CE ou with ECP IOP check ou. Patient is using Combigan bid ou. Patient states Medicare is denying the ECP part of the sx. 2 week post op The 69 year old female presents for 2 week post op. Patient had Phaco c ECP OD on (12/14/2014). Patient states her vision is getting better in that eye. Says she can see in the distance pretty well. Patient states she is still using Prednisolone BID OD, and Diclofenac TID OD. Patient still isn't using her glaucoma drops, has them on hold at this point to see how the eyes do. Patient says the subconj heme finally went away. F/u exam, postop The 69 year old female presents for a 1 day post op CE with ECP OD. Patient to begin Pred and Poly qid OD and Diclofenac tid OD. Patient denies any pain or discomfort. 2 WK PO IOL/ECP OS The 69 year o ld female presents for 2 WK PO IOL/ECP OS. Patient hx IOL w/ECP OS 11/14/2014 and Moderate PSC OD scheduled for surgery on 12/14/2014 with Ivan. Patient reports her vision has much improved, but is very ready for her other surgery. Patient uses Combigan BID OD and Xalatan QHS OD. Patient also uses Prednisolone QID OS and Diclofenac TID OS. Explained drop for the next two weeks with patient. 1 day P/O OS The 69 year old female presents for a 1 day P/O in the OS. (Phaco w/IOL and ECP) Patient states she is doing good since sx yesterday. Patient only came in with Dic, she needs Poly and Pred ERX to her pharmacy. States this is the only gtt that was called in. Patient would also like to know how she is suppose to use her glc gtts? blurry vision The 69 year old female presents for a 6 month cataract evaluation OU. Pt denies any pain or discomfort at this time. Pt reports over the past 6 months her v/a OS>OD has gradually decreased in the distance, near, and c glare at night. Pt states it is getting more difficult to read smalll print and see faces across the street. Pt takes Ocuvite PO QD and uses Combigan BID OU and Latanoprost QHS OU. Pt needs refills on both gtts. Combigan to be sent to [facility] and Latanoprost sent to [facility]. Blurry vision The 68 year old female presents for a 4 month cat eval OU, pt denies any pain or disocmfort at this time. PT states v/a is stable. PT uses Combigan BID OU and Latanoprost QHS OU. Complete Eye Exam The 68 year ol d female presents for Complete Eye Exam. Patient reports she has Glaucoma and has been treated with drops around [address] Toby Kuo wanted her to be seen due to Glaucoma and Cataracts. Patient states she doesn't want a refraction, just had new glasses made. Patient is using Combigan BID OU and Latanoprost QHS OU. Patient states her last visual field test was about a year ago. Functional Status Date Functional Assessmen t No Information Instructions Date Instruction Additional Infor niru Impression/Plan Impression/Plan Impression/Plan Impression/Plan Impression/Plan Impression/Plan Impression/Plan Impression/Plan Impression/Plan Impression/Plan Impression/Plan Impression/Plan Impression/Plan Impression/Plan Impression/Plan Impression/Plan Impression/Plan Use of eye drops discussed. Rela sridhar to Primary open-angle glaucoma, bilateral, moderate stage Impression/Plan - PO AG moderate stage OU-OCT performed today: stable-pressures stable: 16/14-Continue current drops: Timolol 0.5% BID OU, Latanoprost QHS OU-Refills sent todayYAG Post-op OS-well healed, vision improved-educated on permanency of YAG and the possible need for YAG OD in future Follow up - RTC 6 mo nths for 24-2 HVF and IOP check Primary open-angle g laucoma, bilateral, moderate stage - Use of eye drops discussed Related to Primary open-angle glaucoma, bilateral, moderate stage Impression/Plan - Po sterior Capsular Opacification OS.- PCO accounts for patient's visual complaints.- Diagnosis discussed in detail. - Yag Laser treatment, R/B/A discussed with patient.- Advised patient to call with new onset of floaters, flashes of light or a veil covering part of the vision.- Patient elects to proceed with Yag Laser Capsulotomy OS today.- Consent was obtained.-Continue Timolol BID OU and Latanoprost QHS OU.- Patient to return in 4 weeks for Dilated exam with ON-OCT and follow up on post YAG OS Follow up - Complete exam + OCT ON at the end of November Impression/Plan - Po sterior Capsular Opacification OU:- PCO is mild OU.- PCO does not appear to be affecting the vision at this time.- Recommend patient monitor the vision and call with changes.Moderate POAG OU:- IOP stable on current regimen.- Continue Timolol BID OU & Latanoprost QHS OU.- No refills needed at this time.- HVF is stable compared to previous.- Recommend patient return at the end of November for complete exam & OCT ON or sooner with problems.*Patient needs refills at next appointment. Primary open angle g laucoma of both eyes, moderate stage - Educational material provided Related to Primary open angle glaucoma of both eyes, moderate stage Primary open angle g laucoma of right eye, moderate stage - Educational material provided Related to Primary open angle glaucoma of right eye, moderate stage Impression/Plan - Mo derate Primary Open Angle Glaucoma OU s/p ECP OU discussed with patient. Explained the visual field testing is stable compared to previous. The OCT RNFL performed today was baseline, but shows signs of thinning OU. The IOP is stable with the current regimen. Recommend patient continue the Timolol 0.5% BID OU and Latanoprost QHS OU. Refills of both medications were sent to [facility] pharmacy today. Recommend patient return in 6 months or sooner with problems. Follow up - 6 month IOP check and HVF 24- Follow up - 6 month complete exam, HVF and OCT ON Impression/Plan - Di agnosis discussed with patient. Reviewed HVF testing with patient. Explained the visual field seems to show more damage then previous testing. Explained the next step is to lower the IOP even more to prevent further vision loss. Instructed patient to continue the Latanoprost QHS OU and prescribed Timolol 0.5% BID OU. Explained we will continue to monitor the IOP and testing for changes. Recommend she return in 6 months for complete exam, HVF and OCT ON. Impression/Plan - Di agnosis discussed with patient. Explained her IOP was better today. Patient has been using Combigan BID OU until her supply is gone, then she will switch back to Xalatan QHS OU. Patient will return in 3-4 months for an IOP check. Follow up - 3-4 month IOP check Follow up - RTC 1 month IOP Chec k Impression/Plan - IO P much better today using Combigan BID OU. Patient shows mild rebound inflammation after tapering her PO drops. Instructed patient to restart Prednisolone OU TID x 1 week, BID x 1 week, QD for 1 week and then DC. Patient will use the Combigan BID OU until she runs out. Patient will then begin using Xalatan in it's place QHS OU. Refills of Xalatan have been sent to her [facility] pharmacy. Patient will return in 1 month for IOP check. Follow up - 1 MO PO IOP CHECK Impression/Plan - Tw o week PO s/p Phaco with IOL and ECP OD. IOL in good position; healing well. Discussed with patient that her IOP was slightly elevated today OD and requested she start using Combigan BID OU. Medication instillation changes and post op instructions reviewed. Patient will return in 1 month for IOP check. Follow up - RTC in 2 weeks as sc heduled Impression/Plan - On e Day Post Op s/p Phaco with IOL and ECP OD. Patient healing well and IOP is very good. Medication instillation, shield use and restrictions reviewed with patient. Patient to stop using the Combigan for now OD. Discussed the use of +2.50 or +2.75 OTC readers to help with reading until her next visit. Explained to patient that the subconjunctival hemorrhage she has OD may take a week or so to resolve, but nothing to worry about. Return to clinic as scheduled or sooner with problems. Proceed with CE with ECP OD Rela sridhar to Encounter for examination following surgery Follow up - Proceed with CE with ECP OD Related to Encounter for examination following surgery Impression/Plan - Go od post op results. IOP elevated. Start Combigan OS BID, use until next visit. Continue to taper post op drops as instructed. Proceed with CE and ECP OD, discontinue Combigan OD 3 days prior to CE. Related to Encounter for examination following surgery Follow up - as scheduled Related to Encounter for developmental clinic follow-up Impression/Plan - 1 day post op Phaco with PCIOL OS, discussed post op instructions and medication use. Return to clinic as scheduled. pt to proceed without glaucoma drops OS. Related to Post operative visit Impression/Plan - Di scussed dx with pt, treatment options discussed. Pt understands r-a-b of this procedure and elects to schedule. ECP discussed to decrease gtt dependence/IOP control. Pt understands this procedure is elective and can proceed when desired. Specs after CE understood. Dc latanoprost in the operated eye 3 days prior to surgery. She will need the van for transportation. 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 Discussed all risks, benefits, procedures and recovery. Patient understands changing glasses will not improve vision. Patient desires to have surgery, recommend phacoemulsification with intraocular lens. Schedule cataract surgery OD first then OS or return to clinic in 6 months for iOP check and Cataract check if patient decides against surgery at this time. 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 Will continue to observe condition and or symptoms. No change to current treatment. Will continue to monitor IOP. Call if VA worsens. Medication instillation reviewed and understood. Continue using current medication(s). Take medication(s) as written. Medication refill given today. Letter dictated to Diana Portillo MD pts PCP and Dr. Toby Kuo, Discussed VF and findings may be consistent with other systemic anomalities. Related to See list of assessments above Assessments Type Assessment Date assessment Primary open-angle glaucoma, joaquina ateral, severe stage assessment Keratoconjunctivitis sicca, not specified as Sjogren's, bilateral Patient Care Teams Name Effective Dates (start - stop) Status Members No Information
--- OUTSIDE RECORDS SUMMARY | 2024-05-09 08:55 | XMS_ITS | Clinical Summary ---
Author Organization [facility] Address [address] [place] [id number] Care Team Providers Care Agriculture Instructor Name Role Phone Unavailable Primary Care Provider Unavailabl e Social History Tobacco Use Types Packs/Day Years Used Date Smoking Tobacco: Never Assessed Comments Unknown Sex and Gender Information Value Date Recorded Sex Assigned at Not on file Legal Sex Female 8:23 PM CDT Gender Identity Not on file Sexual Orientation Not on file Plan of Treatment Health Maintenance Due Date Last Done Comments Hepatitis C 1963 DTaP, Tdap and Td Vaccines ( 1 - Tdap) 1965 Zoster Vaccines (1 of 2) 1996 Dexa Scan (General) 06/10/2011 Pneumococcal Vaccine: 65+ Ye ars (1 of 1 - PCV) 06/10/2011 RSV Immunization or 60+ Years (1 - 1-dose 75+ series) 2021 COVID-19 Vaccine (2023-2 5 season) 2023 Influenza Adult (#1) 2023 Meningococcal B Vaccine Aged Out No l onger eligible based on patient's age to complete this topic Meningococcal Vaccine Aged Out No ambrocio raj eligible based on patient's age to complete this topic RSV Immunizations Under 20 Months Aged Out No longer eligible based on patient's age to complete this topic
--- OUTSIDE RECORDS SUMMARY | 2024-05-09 08:55 | XMS_ITS | Encounter Summary ---
Author Organization [employer] [facility] Address [address] [place] [address] Care Team Providers Care Advisory Application Developer Name Role Phone Jose Miguel Worrell MD Primary Care Provider Reason for Visit * Reason Comments Medication Refill Encounter Details Date Type Department Care Team ([facility] Contact Info) Description 07/18/2018 Refill [facility] Oncology [facility] Trayc [address] [place] [address] Tesfaye Alfaro MD [address] [place] [phone] Recurrent carcinoma of endometrium (CMS/HCC) Social History Tobacco Use Types Packs/Day Years Used Date Smoking Tobacco: Never Smokeless Tobacco: Never Alcohol Use Standard Drinks/Week Comments No 0 (1 standard drink = 0.6 oz pur e alcohol) Comments No Sex and Gender Information Value Date Recorded Sex Assigned at Not on file 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 Gender Identity Not on file Sexual Orientation Not on file documented as of this encounter Plan of Treatment Upcoming Encounters Date Type Department Care Team ([facility] Contact Info) Description 05/17/2024 11:00 AM CDT Office Visit [facility] Oncology [facility] Tracy [address] [place] [address] Tesfaye Alfaro MD [address] [place] [phone] documented as of this encounter Visit Diagnoses Diagnosis Recurrent carcinoma of endometrium (CMS/HCC) Malignant neoplasm of corpus uteri, except isthmus documented in this encounter Care Teams Advisory Application Developer Relationship Specialty Start Date End Date oJse Miguel Worrell MD [address] [place] [address] PCP - General Family Practice 10/25/19 documented as of this encounter
--- OUTSIDE RECORDS SUMMARY | 2024-05-09 08:55 | XMS_ITS | Clinical Summary ---
Author Organization [facility] Address [address] [place] [address] Care Team Providers Care Respiratory Care Assistant Name Role Phone Jose Miguel Worrell MD Primary Care Provider Allergies Active Allergy Reactions Criticality Noted Date Comments Acetaminophen Nausea and Vomiting Low 12/30/2016 Codeine Nausea and Vomiting Low 12/30/2016 Cortisone Nausea and Vomiting Low 04/09/2021 Cyclobenzaprine Nausea and Vomiting Low 04/09/2021 Hydrocodone Nausea and Vomiting Low 12/30/2016 Hydrocodone-Acetaminophen Nausea and Vomiting Low 0 05/11/2017 Ibuprofen Nausea and Vomiting Low 04/09/2021 Morphine Nausea and Vomiting Low 12/30/2016 Oxycodone Nausea and Vomiting Low 12/30/2016 Prednisone Nausea and Vomiting Low 04/09/2021 Propoxyphene Nausea and Vomiting Low 12/30/2016 Tramadol Nausea and Vomiting Low 12/30/2016 Medications calcium as carbonate (CALTRATE) 1,500 mg (600 mg elemental) Tablet Take 300 mg by mouth 2 times daily. Active cholecalciferol, vitamin D3, 1,000 unit Take 1,000 Units by mouth daily. Active coenzyme Q10 100 mg Capsule Take 100 mg by mouth daily. Active multivitamin (DAILY-VALERIA) tablet Take 0.5 Tablets by mouth 2 times daily. Active KRILL OIL ORAL Take 300 mg by mouth daily. Active Saccharomyces boulardii (FLORASTOR) 250 mg Capsule Take 500 mg by mouth 3 times daily. Active vitamin A-vitamin C-vitamin E (OCUVITE) Tablet Take 1 Tablet by mouth daily. Active latanoprost (XALATAN) 0.005 % solution Administer 1 Drop in both eyes daily at bedtime. Active ondansetron (ZOFRAN) 4 mg Tablet Take 1 Tablet (4 mg) by mouth every 8 hours as needed for Nausea/Emesis. 30 Tablet 3 7 Active iron,carbonyl-FA -multivit-min (OPURITY MULTIVITAMIN) 30 mg iron- 800 mcg Tablet, Chewable Take 1 Tablet by mouth daily. Active vit B cmplx 3-FA-Vit C-Biotin (RENAVITE-RX RX) 1-60-300 mg-mg-mcg Tablet Take 1 Tablet by mouth daily. Active FLUZONE HIGH-DOSE , PF, 180 mcg/0.5 mL Syringe syringe ADM 0.5ML IM UTD 0 8 Active lidocaine-priloc jessica (EMLA) 2.5-2.5 % Cream Apply to port site 30-60 min prior to use. 30 Gram 3 9 Active carvedilol (COREG) 3.125 mg tablet TK 1 T PO BID WF 5 9 Active timoloL maleate (TIMOPTIC) 0.5% solution INT 1 GTT IN OU BID 0 Active mecobalamin (B12 ACTIVE ORAL) Take by mouth. 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 Encounters Date Type Department Care Team Description 05/02/2024 Orders Only [facility] Oncology and Hematology [address] [place] [address] Tesfaye Alfaro MD 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); Recurrent carcinoma of endometrium (CMS/HCC) 04/18/2024 Orders Only [facility] Oncology and Hematology [address] [place] [address] Tesfaye Alfaro MD 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); Recurrent carcinoma of endometrium (CMS/HCC) 04/13/2024 Orders Only [facility] Oncology [facility] [address] [place] [id number] Tesfaye Alfaro MD 04/13/2024 Abstract [facility] Oncology [facility] [address] [place] [id number] Tesfaye Alfaro MD 04/05/2024 10:15 AM CONSTRUCTION SALES MANAGER Office Visit [facility] Oncology [facility] [address] [place] [address] Tesfaye Alfaro MD 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) 04/04/2024 Orders Only [facility] Oncology [place] [address] [address] [place] [phone] Tesfaye Alfaro MD 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); Recurrent carcinoma of endometrium (CMS/HCC) 03/21/2024 Orders Only [facility] Oncology [place] [address] [address] [place] [address] Tesfaye Alfaro MD 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); Recurrent carcinoma of endometrium (CMS/HCC) 03/08/2024 External Device Data STL ABSTRACTION Provider, Abstract 03/07/2024 Orders Only [facility] Oncology [facility] Hematology [place] [address] [place] [address] Tesfaye Alfaro MD 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); Recurrent carcinoma of endometrium (CMS/HCC) 03/02/2024 External Device Data STL ABSTRACTION Provider, Abstract 03/02/2024 External Device Data STL ABSTRACTION Provider, Abstract 02/23/2024 9:45 AM CONSTRUCTION SALES MANAGER Office Visit [place] [address] [address] [place] [phone] Tesfaye Alfaro MD Recurrent carcinoma of endometrium (CMS/HCC) 02/23/2024 Orders Only [facility] Oncology and Hematology - [address] [place] [address] Tesfaye Alfaro MD 02/22/2024 Orders Only [facility] Oncology and Hematology - [address] [place] [address] Tesfaye Alfaro MD 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); Recurrent carcinoma of endometrium (CMS/HCC) from Last 3 Months Family History Medical History Relation Name Comments No Known Problems Father Breast Cancer Mother Cancer Sister Relation Name Status Comments Father Mother Sister Alive Social History Tobacco Use Types Packs/Day Years Used Date Smoking Tobacco: Never Smokeless Tobacco: Never Tobacco Cessation:Counseling Given: Not Answered Alcohol Use Standard Drinks/Week Comments No 0 (1 standard drink = 0.6 oz pur e alcohol) Comments No Sex and Gender Information Value Date Recorded Sex Assigned at Not on file Legal Sex Female 5:22 AM CONSTRUCTION SALES MANAGER Gender Identity Not on file Sexual Orientation Not on file Last Filed Vital Signs Vital Sign Reading Time Taken Comments Blood Pressure 159/91 04/05/2024 10:27 AM CONSTRUCTION SALES MANAGER Pulse 86 04/05/2024 10:27 AM CONSTRUCTION SALES MANAGER Temperature 36.7 C (98 F) 04/05/2024 10:27 AM CONSTRUCTION SALES MANAGER Respiratory Rate 15 04/05/2024 10:27 AM CONSTRUCTION SALES MANAGER Oxygen Saturation 97% 04/05/2024 10:27 AM CONSTRUCTION SALES MANAGER Inhaled Oxygen Concentration - - Weight 57.6 kg (127 lb) 04/05/2024 10:27 AM CONSTRUCTION SALES MANAGER Height 152.4 cm (5') 11/19/2021 1:27 PM CDT Body Mass Index 24.8 11/19/2021 1:27 PM CDT Plan of Treatment Upcoming Encounters Date Type Department Care Team (Late st Contact Info) Description 05/17/2024 11:00 AM CDT Office Visit [facility] Oncology and Hematology - [place] [address] [place] [address] Tesfaye Alfaro MD [address] [place] [address] Health Maintenance Due Date Last Done Comments DTAP/TDAP/TD VACCINES (1 - Tdap) 1964 PNEUMOCOCCAL VACCINE 50+ YEA RS (1 of 2 - PCV) 1965 Traditional Medicare (ACO) A nnual Wellness Visit 1965 ZOSTER VACCINE (1 of 2) 1965 RSV VACCINE (60+ or ) (1 - 1-dose 75+ series) 2021 INFLUENZA VACCINE (#1) 2023 COLORECTAL SCREENING Discontinued 11/08/2015 Colorectal Cancer Screening Discontinued OSTEOPOROSIS SCREENING Completed 06/26/2017, 2015 FIT-DNA Q 3 years Discontinued FIT/FOBT Q 1 year Discontinued Flex Sig/CT Colonography Q 5 years Discontinued Procedures Procedure Name Priority Date/Time Associated Diagnosis Comments CBC WITH DIFFERENTIAL Routine 04/05/2024 11:37 AM CONSTRUCTION SALES MANAGER CBC WITH DIFFERENTIAL Routine 02/23/2024 1:44 PM CONSTRUCTION SALES MANAGER BASIC METABOLIC PANEL Routine 02/23/2024 1:39 PM CONSTRUCTION SALES MANAGER from Last 3 Months Results * CBC WITH DIFFERENTIAL (04/05/2024 11:37 AM CONSTRUCTION SALES MANAGER) Only the most recent of2 resultswithin the time period is included. Blood Tesfaye Alfaro MD HEMATOLOGY ORDERABLES Final Res ult * BASIC METABOLIC PANEL (02/23/2024 1:39 PM CONSTRUCTION SALES MANAGER) Blood Tesfaye Alfaro MD CHEMISTRY ORDERABLES Final Resu lt from Last 3 Months Insurance MEDICARE PART A AND B [facility] SUPP MEDICARE PART A AND B [facility] SUPP Care Teams Respiratory Care Assistant Relationship Specialty Start Date End Date Jose Miguel Worrell MD [address] [place] [address] PCP - General Family Practice 10/25/19
--- OUTSIDE RECORDS SUMMARY | 2024-05-09 08:55 | XMS_ITS | Clinical Summary ---
Author Organization [facility] [email or web address] Address [address] [place] [address] Care Team Providers Care Piecer Up Name Role Phone Noman Prince MD Primary Care Provider [phone] Source Comments [facility] [email or web address],non-owned Affiliates and Associated Physician Practices is amultiple site organization consisting of ambulatory clinics and hospital sitesin [place], [place], [place] and [place]. This disclosure is being madepursuant to the Care Everywhere program and may not contain all information available regarding this patient. Last updated [email or web address] Allergies No known active allergies Medications * Be aware that medications may not be up to date on this document. Alwaysverify current medications with the patient. Medication Sig Dispensed Refills Start Date End Date Status multivitamin (OPURITY) CHEW tablet Take 1 Tab by mouth once daily. Active aspirin 81 MG tablet Take 81 mg by mouth once daily. Active Active Problems No known active problems Social History Tobacco Use Types Packs/Day Years Used Date Smoking Tobacco: Never Alcohol Use Standard Drinks/Week Comments Not Asked 0 (1 standard drink = 0.6 oz pur e alcohol) Sex and Gender Information Value Date Recorded Sex Assigned at Not on file Gender Identity Not on file Sexual Orientation Not on file Last Filed Vital Signs Vital Sign Reading Time Taken Comments Blood Pressure 150/78 07/04/2014 11:55 AM CDT Pulse 77 12/28/2012 10:49 AM TODDLER NANNY Temperature 37.2 C (99 F) 09/02/2011 1:12 PM CDT Respiratory Rate 18 09/02/2011 1:12 PM CDT Oxygen Saturation 100% 09/02/2011 1:12 PM CDT Inhaled Oxygen Concentration - - Weight 59.9 kg (132 lb) 07/04/2014 11:55 AM CDT Height 157.5 cm (5' 2 ) 07/04/2014 11:55 AM CDT Body Mass Index 24.14 07/04/2014 11:55 AM CDT Plan of Treatment Health Maintenance Due Date Last Done Comments BONE DENSITY TESTING 1945 MEDICARE AWV 12 MONTHS 1945 HEPATITIS C SCREENING 06/04/1964 DTAP/TDAP/TD VACCINES (1 - Tdap) 1965 PNEUMOCOCCAL VACCINE 50+ (1 of 1 - PCV) 1996 ZOSTER VACCINE (1 of 2) 1996 Respiratory Syncytial Virus (RSV) Vaccine Pt: or over 60 yrs (1 - 1-dose 75+ series) 2021 COVID-19 VACCINE ( - 2023-2 5 season) 2023 INFLUENZA VACCINE (#1) 2023 DEPRESSION SCREENING 02/10/2024 HEPATITIS B VACCINE Aged Out No longe r eligible based on patient's age to complete this topic HIB VACCINE Aged Out No longer eligi ble based on patient's age to complete this topic HPV VACCINE Aged Out No longer eligi ble based on patient's age to complete this topic MENINGOCOCCAL (Group B) VACC INE SHARED DECISION-MAKING Aged Out No longer eligibl e based on patient's age to complete this topic MENINGOCOCCAL GROUPS A/C/Y/W VACCINE Aged Out No longer eligible b ased on patient's age to complete this topic Care Teams Piecer Up Relationship Specialty Start Date End Date Noman Prince MD [address] [place] [address] PCP - General Family Medicine 03/08/12
[2024-05-09 10:27] LABS: Cholesterol 181 mg/dL (0-200); HDL Direct 81 mg/dL; Triglycerides 77 mg/dL (<150)
[2024-05-09 10:38] LABS: LDL Cholesterol Direct 67 mg/dL
== END 2024-05-09 08:31 | disposition home or self-care (01) ==
PROVIDERS: PCP Nurse Practitioner Family; Referring Provider Internal Medicine Cardiovascular Disease; Visit Provider Internal Medicine Hematology & Oncology
DX: C78.7 Secondary malignant neoplasm of liver and intrahepatic bile duct (principal); E78.5 Hyperlipidemia, unspecified; R91.8 Other nonspecific abnormal finding of lung field
CPT/HCPCS: 36415; 71260; 80061; Q9967

== ENCOUNTER 2024-07-28 09:35 | Outpatient (CLI) | payer MEDICARE, SELFPAY ==
--- NOTE | 2024-07-28 09:42 | ECHO_ITS ---
Patient Info Name: Kailee Marques Age: 79 years : 1945 Gender: Female Ht: 64 in Wt: 122 lbs BSA: 1.58 m2 HR: 77 bpm BP: 136 / 70 mmHg Technical Quality: Good Exam Date: 07/28/2024 9:56 AM Patient Status: O Admit Date: 07/28/2024 Exam Type: CA echo doppler color flow Complete two-dimensional, color flow and Doppler transthoracic echocardiogram is performed. Strain analysis performed. Cake Press Operator Helper: Lida Goodman Attending Provider: Frank Menjivar DO Summary 1. Complete two-dimensional, color flow and Doppler transthoracic echocardiogram is performed. 2. Left ventricular chamber dimension is normal. 3. Left ventricular systolic function is normal, estimated at 65-70. 4. The left ventricular diastolic function is abnormal. 5. Global longitudinal strain is normal at -18.8%. 6. E/e' 24 is elevated. 7. Left atrial chamber dimension is severely enlarged. 8. Right atrial chamber dimension is mildly enlarged. 9. There is mild aortic valve sclerosis. 10. There is trace aortic valve regurgitation. 11. 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 12. There is mild mitral valve regurgitation. 13. There is moderate tricuspid valve regurgitation. 14. Mild pulmonary hypertension, estimated pulmonary arterial systolic pressure is 47 mmHg. Left Ventricle E/e' 24 is elevated. Left ventricular chamber dimension is normal. Left ventricular systolic function is normal, estimated at 65-70. The left ventricular diastolic function is abnormal. Global longitudinal strain is normal at -18.8%. Right Ventricle Right ventricular chamber dimension is normal. Right ventricular systolic function is normal and with normal TAPSE 2.9 cm. Left Atria Left atrial chamber dimension is severely enlarged. Right Atria Right atrial chamber dimension is mildly enlarged. Aortic Valve The aortic valve is trileaflet. There is mild aortic valve sclerosis. There is no aortic valve stenosis. There is trace aortic valve regurgitation. Pulmonic Valve There is no pulmonic regurgitation. 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 There is no mitral valve stenosis. There is mild mitral valve regurgitation. Tricuspid Valve There is moderate tricuspid valve regurgitation. Mild pulmonary hypertension, estimated pulmonary arterial systolic pressure is 47 mmHg. Pericardium/Pleural There is no pericardial effusion. Inferior Vena Cava Normal inferior vena cava with >50% collapse upon inspiration consistent with normal right atrial pressure, 5 mmHg. Aorta The aortic root size at the sinus of Valsalva is normal. Left Ventricular Outflow Tract Name Value Normal LVOT 2D LVOT Diameter 1.9 cm LVOT Doppler LVOT Peak Velocity 117 cm/s LVOT Peak Gradient 6 mmHg LVOT Mean Gradient 2 mmHg LVOT VTI 23 cm LVOT VTI/AV VTI Ratio 0.2 LVOT Stroke Volume 63 ml LVOT CO 4.8 l/min LVOT CI 3.1 l/min/m2 Pulmonic Valve Name Value Normal RVOT Doppler RVOT Peak Velocity 55 cm/s RVOT Peak Gradient 1 mmHg PV Doppler PV Peak Velocity 232 cm/s PV Peak Gradient 21 mmHg Mitral Valve Name Value Normal MV Doppler MV Peak Gradient 17 mmHg MV Mean Gradient 6 mmHg MV Area (Cont Eq VTI) 1.5 cm2 MV Regurgitation Doppler MR Peak Gradient 141 mmHg MV Diastolic Function MV E Peak Velocity 185 cm/s MV A Peak Velocity 106 cm/s MV E/A 1.7 MV Decel Time (PW) 208 ms Tricuspid Valve Name Value Normal TV Regurgitation Doppler TR Peak Velocity 324 cm/s TR Peak Gradient 42 mmHg Estimated PAP/RSVP RA Pressure 5 mmHg <=5 PA Systolic Pressure 47 mmHg <36 RV Systolic Pressure 47 mmHg <36 TV Annular TDI TV Lateral Emelyn s' Velocity 16.0 cm/s >=9.5 Aorta Name Value Normal Ascending Aorta Ao Root Diameter (MM) 2.9 cm Ao Root Diam Index (MM) 1.8 cm/m2 Aortic Valve Name Value Normal AV Doppler AV Peak Velocity 521 cm/s AV Peak Gradient 108 mmHg AV Mean Gradient 58 mmHg AV VTI 142 cm AV Area (Cont Eq VTI) 0.4 cm2 >=3.0 AV Area (Cont Eq Shaw) 0.6 cm2 AV DI (Shaw) 0.23 AV Regurgitation 2D LVOT Area 2.7 cm2 Ventricles Name Value Normal LV Dimensions 2D/MM IVS Diastolic Thickness (2D) 0.9 cm 0.6-1.0 IVS Diastole Thickness (MM) 1.0 cm 0.6-0.9 LVID Diastole (2D) 4.8 cm 3.8-5.2 LVID Diastole (MM) 5.6 cm 3.8-5.2 LVIW Diastolic Thickness (2D) 1.0 cm 0.6-0.9 LVIW Diastolic Thickness (MM) 1.1 cm 0.6-0.9 LVID Systole (2D) 2.8 cm 2.2-3.5 LVID Systole (MM) 3.0 cm 2.2-3.5 LVOT Diameter 1.9 cm LV Mass (2D Cubed) 158.25 g 67.00-162.00 LV Mass Index (2D Cubed) 100 g/m2 43-95 Relative Wall Thickness (2D) 0.41 <=0.42 LV Mass (MM Cubed) 234.56 g 67.00-162.00 LV Mass Index (MM Cubed) 148 g/m2 43-95 Relative Wall Thickness (MM) 0.38 LV Fractional Shortening/Ejection Fraction 2D/MM LV Fractional Shortening (2D) 40 % 27-45 LV Fractional Shortening (MM) 47 % 27-45 LV EF (MM Teichholz) 78 % LV EF (2D Teichholz) 71 % LV Diastolic Volume (4C MOD) 79 ml LV EF (4C MOD) 73 % LV Diastolic Volume (2C MOD) 65 ml LV EF (2C MOD) 68 % LV Diastolic Volume (BP MOD) 73 ml 46-106 LV Diastolic Volume Index (BP MOD) 46 ml/m2 29-61 LV Systolic Volume (BP MOD) 22 ml 14-42 LV Systolic Volume Index (BP MOD) 14 ml/m2 8-24 LV EF (BP MOD) 70 % 54-74 LV Diastolic Length (4C) 7.3 cm LV Systolic Length (4C) 6.1 cm LV Stroke Volume (4C MOD) 58 ml Atria Name Value Normal LA Dimensions LA Dimension (MM) 5.9 cm 2.7-3.8 LA Volume (4C A-L) 166 ml LA Volume (BP A-L) 148 ml RA Dimensions RA Systolic Major [place] Length (4C) 6.0 cm 2.2-2.8 RA Area (4C) 19.6 cm2 <=18.0 EchoPAC Name Value Normal AutoEF LVCO_BiP_Q (Mmod0WJU) 4.2 l/min LVEF_BiP_Q (Qwoa3LWA) 62 % LVSV_BiP_Q (Uzog0KIL) 56 ml LVVED_BiP_Q (Xwbw9RFN) 90 ml LVVES_BiP_Q (Slnp0KGJ) 34 ml HR_4Ch_Q (Nidu9UWK) 74 bpm LVCO_4Ch_Q (Ssgo8UIM) 4.4 l/min LVEF_4Ch_Q (Jayn2ODP) 69 % LVLd_4Ch_Q (Gefc8OJQ) 7.3 cm LVLs_4Ch_Q (Wtkr4GIZ) 6.1 cm LVSV_4Ch_Q (Quqq7YXH) 60 ml LVVED_4Ch_Q (Sniz5SIK) 87 ml LVVES_4Ch_Q (Rayb6BTO) 27 ml HR_2Ch_Q (Vdjv0HTX) 81 bpm LVCO_2Ch_Q (Kotu7HYQ) 4.1 l/min LVEF_2Ch_Q (Pbqs8ASD) 54 % LVLd_2Ch_Q (Rzfm8OUD) 7.8 cm LVLs_2Ch_Q (Qbvi9QEY) 6.6 cm LVSV_2Ch_Q (Guhd5QCL) 51 ml LVVED_2Ch_Q (Xjbw4QEV) 94 ml LVVES_2Ch_Q (Cihn0PLD) 43 ml FRED LV Apical Anterior Longitudinal Strain (FRED) -14.2 % LV Apical Anteroseptal Longitudinal Strain (FRED) -29.6 % LV Apical Inferior Longitudinal Strain (FRED) -11.6 % LV Apical Lateral Longitudinal Strain (FRED) -29.9 % LV Apical Posterior Longitudinal Strain (FRED) -28.6 % LV Apical Septal Longitudinal Strain (FRED) -29.9 % AV Closure (FRED) 393 ms LV Basal Anterior Longitudinal Strain (FRED) -11.0 % LV Basal Anteroseptal Longitudinal Strain (FRED) -20.1 % LV Basal Inferior Longitudinal Strain (FRED) -19.0 % LV Basal Anterolateral Longitudinal Strain (FRED) -11.7 % LV Basal Inferolateral Longitudinal Strain (FRED) -9.6 % LV Basal Inferoseptal Longitudinal Strain (FRED) -20.8 % LV Global Longitudinal Strain (2C FRED) -15.3 % LV Global Longitudinal Strain (4C FRED) -20.8 % LV Global Longitudinal Strain (APLAX FRED) -20.5 % LV Global Longitudinal Strain (FRED) -18.8 % LV Mid Anterior Longitudinal Strain (FRED) -18.5 % LV Mid Anteroseptal Longitudinal Strain (FRED) -24.0 % LV Mid Inferior Longitudinal Strain (FRED) -20.7 % LV Mid Anterolateral Longitudinal Strain (FRED) -19.9 % LV Mid Inferolateral Longitudinal Strain (FRED) -23.8 % LV Mid Inferoseptal Longitudinal Strain (FRED) -24.5 % Report Signatures
--- OUTSIDE RECORDS SUMMARY | 2024-07-28 10:01 | XMS_ITS | Clinical Summary ---
Author Organization [facility] Address [address] [place] [address] Care Team Providers Care Winery Worker Name Role Phone Noman Prince MD Primary Care Provider [phone] Source Comments [facility],non-owned Affiliates and Associated Physician Practices is amultiple site organization consisting of ambulatory clinics and hospital sitesin [place], [place], [place]. This disclosure is being madepursuant to the Care Everywhere program and may not contain all information available regarding this patient. Last updated 17.[facility] Allergies No known active allergies Medications * Be aware that medications may not be up to date on this document. Alwaysverify current medications with the patient. multivitamin (OPURITY) CHEW tablet Take 1 Tab by mouth once daily. Active aspirin 81 MG tablet Take 81 mg by mouth once daily. Active Active Problems No known active problems Social History Tobacco Use Types Packs/Day Years Used Date Smoking Tobacco: Never Alcohol Use Standard Drinks/Week Comments Not Asked 0 (1 standard drink = 0.6 oz pur e alcohol) Comments Unknown Sex and Gender Information Value Date Recorded Sex Assigned at Not on file Legal Sex Female 6:31 AM CASTING ASSOCIATE Gender Identity Not on file Sexual Orientation Not on file Last Filed Vital Signs Vital Sign Reading Time Taken Comments Blood Pressure 150/78 07/04/2014 11:55 AM CDT Pulse 77 12/28/2012 10:49 AM CASTING ASSOCIATE Temperature 37.2 C (99 F) 09/02/2011 1:12 PM CDT Respiratory Rate 18 09/02/2011 1:12 PM CDT Oxygen Saturation 100% 09/02/2011 1:12 PM CDT Inhaled Oxygen Concentration - - Weight 59.9 kg (132 lb) 07/04/2014 11:55 AM CDT Height 157.5 cm (5' 2) 07/04/2014 11:55 AM CDT Body Mass Index 24.14 07/04/2014 11:55 AM CDT Plan of Treatment Health Maintenance Due Date Last Done Comments BONE DENSITY TESTING 1945 HEPATITIS C SCREENING 06/04/1964 DTAP/TDAP/TD VACCINES (1 - Tdap) 1965 PNEUMOCOCCAL VACCINE 50+ (1 of 1 - PCV) 1996 ZOSTER VACCINE (1 of 2) 1996 Respiratory Syncytial Virus (RSV) Vaccine Pt: or over 60 yrs (1 - 1-dose 75+ series) 2021 COVID-19 VACCINE ( - 2023-2 5 season) 2023 DEPRESSION SCREENING 02/10/2024 INFLUENZA VACCINE (Season Ended) 2024 HEPATITIS B VACCINE Aged Out No longe [...] on patient's age to complete this topic Insurance [facility] MEDICARE Care Teams Winery Worker Relationship Specialty Start Date End Date Noamn Prince MD [address] [place] [address] PCP - General Family Medicine 03/08/12
--- OUTSIDE RECORDS SUMMARY | 2024-07-28 10:01 | XMS_ITS | Continuity of Care Document ---
Author Organization [email or web address] [facility] [place] [address] [facility] [address] [place] [address] Phone Care Team Providers Care Manager Managed [employer] Name Role Phone Yasmany PIRES, Vanessa Unavailable [...] 50 mg tablet take 1 tablet by oral route every 6 hours as needed 50 [...] PATCH take one tablet daily - Active dorzolamide 22.3 mg-timolol 6.8 mg/mL eye drops instill 1 drop by ophthalmic route 2 times every day into both eye(s) - No Longer Active Procedures Procedure Date No Charge Optomap Fundus Photos Office/outpatient Visit, Est No Charge Optomap Fundus Photos Office/outpatient Visit, Est Visual Field Examination(s) No Charge GDX Posterior Segment No Charge Refraction No Charge Optomap Fundus Photos 025 SCODI, Retina Eye Exam & Treatment No [...] Posterior Segment No Charge Optomap Fundus Photos 021 Eye Exam & Treatment Fundus Photography W/ Report Office/outpatient Visit, Est No Charge Optomap Fundus Photos 020 Visual Field Examination(s) SCODI, Posterior Segment Eye Exam & Treatment SCODI, Posterior Segment Office/outpatient Visit, Est No Charge Optomap Fundus Photos 019 Fundus Photography W/ Report Office/outpatient Visit, Est Office/outpatient Visit, Est Trabeculoplasty By Laser SX Post-op Follow-up Visit Special Eye Evaluation Nov- SCODI, Posterior Segment Oct- After Cataract Laser Surgery Eye Exam & Treatment Nov- No Charge Refraction No Charge Refraction Visual [...] 5 Cyclophotocoag,endoscopic Remove Cataract, Insert Lens,Comanaged N Cyclophotocoag,endoscopic,comanaged [employer]Master-Professional No Charge Refraction Post-op Follow-up Visit Remove Cataract, Post Op Care Oct-06-201 5 Cyclophotocoag,endoscopic Remove Cataract, Insert Lens,Comanaged O [...] Providers Copied on Encounter Office/outpa tient Visit, [facility], [address] [place] [address] [address], [place], [place], [address], tel:[phone] SEC [facility] Referral Source Professional 1 Mo IOP Check (chief complaint) Primary open-angle glaucoma, bilateral, severe stage Apr-0 3-202 5 Yasmany OD Vanessa. [facility] [employer], [address], [place], [address], [place]. tel:[phone] Referring Provider: Toby Quiñones, [address], [address]. tel:[phone] Office/outpa tient Visit, [facility], [facility] [employer] [address], [place], [place], [address], tel:[phone] SEC [place] Professional 1 Mo IOP Check (chief complaint) Primary open-angle glaucoma, bilateral, severe stageKeratoco njunctivitis sicca, not specified as Sjogren's, bilateral Mar-0 5-202 5 Yasmany OD Vanessa. [facility] [employer], [address], [place], [place], [address], . tel:[phone] Referring Provider: Toby Quiñones, [address] [facility], [place], [address]. tel:[phone] [facility], [address], [place], [place], [address], [place] tel:[phone] SEC [facility] Professional Complete Exam (chief complaint) Pseudophakia, both eyesVitreous degeneration, bilateralKera toconjunctivi tis sicca, not specified as Sjogren's, bilateralPrim marion open-angle glaucoma, bilateral, severe stagePuckerin g of macula, right eye 0-202 5 Yasmany OD Vanessa. [address] [place], [place] [address]crest [employer], [address], [place], [place], [address], [place]. tel:[phone] Referring Provider: Toby Quiñones, [address] [facility], [place], [address]. tel:[phone] Office/outpa tient Visit, Est [facility], [address] [place] [address] [address], [place], [place], [address], [place] tel:[phone] SEC [facility] Professional glaucoma, pressure check (chief complaint) Primary open-angle glaucoma, bilateral, moderate stagePseudoph florencio, both eyes 4 Yasmany OD Vanessa. [facility] [place] [employer] [facility], [address], [place], [place], [address], [place]. tel:[phone] Referring Provider: Toby Quiñones, [address] [facility], [place], [address]. tel:[phone] [facility], [address] [place] [address] [address], [place], [place], [address], [place] tel:[phone] SEC [facility] Professional Complete Exam (chief complaint) Pseudophakia, both eyesPrimary open-angle glaucoma, bilateral, moderate stageVitreous degeneration, bilateral Jan-2 6-202 3 Yasmany OD Vanessa. [facility] [place] [employer], [address], [place], [place], [address], [place]. tel:[phone] Referring Provider: Toby Quiñones, [address] [facility], [place], [address]. tel:[phone] [facility], [address], [place], [place], [address], [place] tel:[phone] SEC Avinash ECHAVARRIA Professional No Information 3 Ivan Bailey. [address], [address], [place], [place], [address], [place]. tel:[phone] Office/outpa tient Visit, Est [facility] Eye [facility], [address], [place], [place], [address], [place] tel:[phone] SEC Avinash ECHAVARRIA Professional IOP (chief complaint) Primary open angle glaucoma of both eyes, moderate stage 3 Felton Jackson. [address] [facility], [address], [place], [place], [address], [place]. tel:[phone] Referring Provider: Toby Quiñones, [address] [facility], [place], [address]. tel:[phone] [facility], [address] [place] [address] [address], [place], [place], [address], [place] tel:[phone] SEC Avinash ECHAVARRIA Professional 6 mo Complete exam (chief complaint) Primary open angle glaucoma of both eyes, moderate stagePseudoph florencio of both eyes 2 Felton Jackson. [address] [facility], [address], [place], [place], [address], [place]. tel:[phone] Referring Provider: Toby Quiñones, [address] [facility], [place], [address]. tel:[phone] [facility], [address], [place], [place], [address], [place] tel:[phone] SEC Avinash ECHAVARRIA Professional Complete Exam (chief complaint) Primary open angle glaucoma of both eyes, moderate stagePseudoph florencio of both eyes 2 Felton Jackson. [address] [facility], [address], [place], [place], [address], [place]. tel:[phone] Referring Provider: Toby Quiñones, [address] [facility], [place], [address]. tel:[phone] Office/outpa tient Visit, [facility], [address], [place], [place], [address], [place] tel:[phone] SEC Avinash [place] Professional 6 month IOP check w/Vf (chief complaint) Primary open angle glaucoma of both eyes, moderate stage 1 Felton Jackson. [address] [facility], [address], [place], [address], [place]. tel:[phone] Referring Provider: Toby Quiñones, [address] [facility], [place], [address]. tel:[phone] [facility], [address], [place], [place], [address], [place] tel:[phone] SEC Avinash ECHAVARRIA Professional 6 mo Complete exam (chief complaint) Primary open angle glaucoma of both eyes, moderate stagePseudoph florencio of both eyesRPE mottling of maculaSuperfi cial punctate keratitis of both eyes 1 eFlton Jackson. [address] [facility], [address], [place], [place], [address], [place]. tel:[phone] Referring Provider: Toby Quiñones, [address] [facility], [place], [address]. tel:[phone] Office/outpa tient Visit, [facility], [address], [place], [place], [address], [place] tel:[phone] SEC Avinash ECHAVARRIA Professional 6 month IOP check (chief complaint) Primary open angle glaucoma of both eyes, moderate stage Dec-1 -202 0 Felton Jackson. [address] [facility], [address], [place], [place], [address], [place]. tel:[phone] Referring Provider: Toby Quiñones, [address] [facility], [place], [address]. tel:[phone] [facility], [address] [place] [address] [address], [place], [place], [address], [place] tel:[phone] SEC Avinash ECHAVARRIA Professional Complete Exam (chief complaint) Primary open angle glaucoma of both eyes, moderate stagePseudoph florencio, both eyesRPE mottling of macula Shalom-0 - 0 Felton Jackson. [address] [facility], [address], [place], [address], [place]. tel:[phone] Referring Provider: Toby Quiñones, [address] [facility], [place], [address]. tel:[phone] Office/outpa tient Visit, [facility], [address] [place] [address] [address], [place], [place], [address], [place] tel:[phone] SEC Avinash ECHAVARRIA Professional 6 month IOP check (chief complaint) Primary open angle glaucoma of both eyes, moderate stage Oct-0 4-201 9 Felton Jackson. [address] [facility], [address], [place], [place], [address], [place]. tel:[phone] Referring Provider: Toby Quiñones, [address] [facility], [place], [address]. tel:[phone] Office/outpa tient Visit, [facility], [address] [place] [address] [address], [place], [place], [address], [place] tel:[phone] SEC Avinash ECHAVARRI[facility] Professional SLT (chief complaint) Primary open angle glaucoma of both eyes, moderate stage Apr-1 9-201 9 Felton Jackson. [address] [employer], [address], [place], [place], [address], [place]. tel:[phone] Referring Provider: Toby Quiñones, [address] [facility], [place], [address]. tel:[phone] Office/outpa tient Visit, Est [facility], [address] [place] [address] [address], [place], [place], [address], [place] tel:[phone] SEC Avinash [place] Professional office visit (chief complaint) Primary open angle glaucoma of both eyes, moderate stagePVD (posterior vitreous detachment), right eyeSuperficia l punctate keratitis of both eyes 8 Felton Jackson. [address] [employer] [employer], [address], [place], [place], [address], [place]. tel:[phone] Referring Provider: Toby Quiñones, [address] [facility], [place], [address]. tel:[phone] [facility], [address] [place] [address] [address], [place], [place], [address], [place] tel:[phone] SEC [facility] Professional YAG PC PO/SLT (chief complaint) Primary open angle glaucoma of left eye, moderate stageEncounte r for examination following surgery 8 Felton Jackson. [address] [facility], [address], [place], [place], [address], [place]. tel:[phone] Referring Provider: Toby Quiñones, [address] [facility], [place], [address]. tel:[phone] [facility], [address] [place] [address] [address], [place], [place], [address], [place] tel:[phone] SEC [place] Professional 6 mo IOP check (chief complaint) Primary open angle glaucoma of both eyes, moderate stagePseudoph florencio, both eyesSuperfici al punctate keratitis of right eyeOther secondary cataract, right eyeRPE mottling of macula Nov- 8 Felton Jackson. [address], [address], [place], [place], [address], [place]. tel:[phone] Referring Provider: Toby Quiñones, [address] [facility], [place], [address]. tel:[phone] Office/outpa tient Visit, [facility] Eye [facility], [address] [place] [address] [address], [place], [place], [address], [place] tel:[phone] SEC [place] Professional 6 mo IOP check (chief complaint) No Information May- 8 Felton Jackson. [address], [address], [place], [place], [address], [place]. tel:[phone] Referring Provider: Toby Quiñones, [address] [facility], [place], [address]. tel:[phone] Office/outpa tient Visit, [facility], [address] [place] [address] [address], [place], [place], [address], [place] tel:[phone] SEC [place] Professional Yag PC po (chief complaint) No Information Nov- 7 Felton Jackson. [address], [address], [place], [place], [address], [place]. tel:[phone] Referring Provider: Toby Quiñones, [address] [facility], [place], [address]. tel:[phone] Office/outpa tient Visit, [facility], [address] [place] [address] [address], [place], [place], [address], [place] tel:[phone] SEC [place] Professional Blurry/dec reased vision (chief complaint) No Information 7 Felton Jackson. [address], [address], [place], [place], [address], [place]. tel:[phone] Referring Provider: Toby Quiñones, [address] [facility], [place], [address]. tel:[phone] Office/outpa tient Visit, [facility], [address] [place] [address] [address], [place], [place], [address], [place] tel:[phone] SEC [facility] Professional glaucoma, pressure check (chief complaint) No Information May-0 5-201 7 Felton Jackson. [address] [facility], [address] [place], [place], [address], [place]. tel:[phone] Referring Provider: Toby Quiñones, [address] [facility], [place], [address]. tel:[phone] [facility], [address] [place] [address] [address], [place], [place], [address], [place] tel:[phone] SEC [facility] Professional 6 month IOP check (chief complaint) No Information Nov-0 - 6 Felton Jackson. [address], [address], [place], [address], [place]. tel:[phone] Referring Provider: Toby Quiñones, [address] [facility], [place], [address]. tel:[phone] Office/outpa tient Visit, [facility], [address] [place] [address] [address], [place], [place], [address], [place] tel:[phone] SEC [facility] Professional 4 month IOP Check (chief complaint) No Information June-2 - 6 Felton Jackson. [address], [address], [place], [address], [place]. tel:[phone] Referring Provider: Toby Quiñones, [address] [facility], [place], [address]. tel:[phone] Office/outpa tient Visit, [facility], [address], [place], [place], [address], [place] tel:[phone] SEC [place] Professional IOP check OU (chief complaint) No Information 6 Felton Jackson. [address], [address], [place], [place], [address], [place]. tel:[phone] Referring Provider: Toby Quiñones, [address] [facility], [place], [address]. tel:[phone] [facility] Eye [facility], [address] [place] [address] [address], [place], [place], [address], [place] tel:[phone] SEC [place] Professional F/u exam, postop (chief complaint) No Information 5 Felton Jackson. [address], [address], [place], [place], [address], [place]. tel:[phone] Referring Provider: Toby Quiñones, [address] [facility], [place], [address]. tel:[phone] [facility], [address] [place] [address] [address], [place], [place], [address], [place] tel:[phone] SEC Avinash ECHAVARRIA Professional 2 week post op (chief complaint) No Information 2 5 Felton Jackson. [address], [address], [place], [place], [address], [place]. tel:[phone] Referring Provider: Toby Quiñones, [address] [facility], [place], [address]. tel:[phone] [facility] Eye [facility], [address] [place] [address] [address], [place], [place], [address], [place] tel:[phone] SEC [place] Professional F/u exam, postop (chief complaint) No Information 0 5 Felton Jackson. [address], [address], [place], [place], [address], [place]. tel:[phone] Referring Provider: Toby Quiñones, [address] [facility], [place], [address]. tel:[phone] [facility] Eye [facility], [address], [place], [place], [address], [place] tel:[phone] NovLTAC, [facility] No Information Nov-0 5-201 5 [place] Leo. [address], [address], [place], [place], [address], [place]. tel:[phone] Referring Provider: Toby Quiñones, [address] [facility], [place], [address]. tel:[phone] [facility] Eye [facility], [address], [place], [place], [address], [place] tel:[phone] SEC [facility] No Information Nov-0 4-201 5 Ivan Leo. [address] [employer] [facility], [address], [place], [place], [address], [place]. tel:[phone] Referring Provider: Toby Quiñones, [address] [facility], [place], [address]. tel:[phone] [facility], [address] [place] [address] [address], [place], [place], [address], [place] tel:[phone] SEC [facility] Professional 2 WK PO IOL/ECP OS (chief complaint) No Information Oct-2 0-201 5 Yanivkdante Mosher. [address] [facility], [address], [place], [place], [address], [place]. tel:[phone] Referring Provider: Toby Quiñones, [address] [facility], [place], [address]. tel:[phone] [facility] Eye [facility], [address] [place] [address] [address], [place], [place], [address], [place] tel:[phone] SEC Avinash ECHAVARRIA Professional 1 day P/O OS (chief complaint) No Information Nov-0 7-201 5 Faviola Mosher. [address] [facility], [address], [place], [place], [address], [place]. tel:[phone] Referring Provider: Toby Quiñones, [address] [facility], [place], [address]. tel:[phone] [facility], [address], [place], [place], [address], [place] tel:[phone] NovLT[facility] No Information Nov-0 6-201 5 Ivan Bailey. [address], [address], [place], [place], [address], [place]. tel:[phone] Referring Provider: Toby Quiñones, [address] [facility], [place], [address]. tel:[phone] [employer] [facility], [address], [place], [place], [address], [place] tel:[phone] SEC [facility] No Information Nov-0 5-201 5 Ivan Bailey. [address], [address], [place], [place], [address], [place]. tel:[phone] Referring Provider: Toby Quiñones, [address] [facility], [place], [address]. tel:[phone] [facility], [address], [place], [place], [address], [place] tel:[phone] SEC Avinash ECHAVARRIA Professional No Information Oct-2 9-201 5 Fleton Jackson. [address] [facility], [address], [place], [place], [address], [place]. tel:[phone] Referring Provider: Leo Godinez, [address] [place] [address], [place], [address]. tel:[phone] Office/outpa tient Visit, [facility], [address] [place] [address] [address], [place], [place], [address], tel:[phone] SEC Avinash [place] Professional blurry vision (chief complaint) No Information Sep-0 8-201 5 Ivan Leo. [address] [place] [address] [address] [facility], [address], [place], [place], [address], [place]. tel:[phone] Referring Provider: Toby Quiñones, [address] [facility], [place], [address]. tel:[phone] Office/outpa tient Visit, [facility], [address] [place] [address] [address], [place], [place], [address], tel:[phone] SEC [place] Professional Blurry vision (chief complaint) No Information Mar-1 0-201 5 [place] Leo. [address] [place] [address] [address] [facility], [address], [place], [place], [address], [place]. tel:[phone] Referring Provider: Toby Quiñones, [address] [facility], [place], [address]. tel:[phone] [facility], [address] [place] [address] [address], [place], [place], [address], tel:[phone] SEC [place] Professional Complete Eye Exam (chief complaint) No Information Dec-0 9-201 4 [place] Leo. [address] [place] [address] [address] [facility], [address], [place], [place], [address], [place]. tel:[phone] Referring Provider: Tboy Quiñones, [address] [facility], [place], [address]. tel:[phone] Family History Family Member Type Diagnosis Age At Onset Sister Problem (finding) glaucoma Father Problem (finding) degenerative disorder o f macula Payers Payer name Insurance type Covered alliance party ID Authoriza tion(s) [place] [id number] [facility] [id number] Social History Type Description Quantity Date Captured Comments Alcohol Use Details No Caffeine Use Details No Tobacco Use Status Current non-smoker Smoking Status Never smoker Non-Smoking Tobacco Use Details : No Details Available : No Details Available Sex Female Chief Complaint And Reason For Visit From encounter dated '05/12/2024 13:15'. 1 Mo IOP Check (chief complaint). Description: The 78 year old patient presents for evaluation of 1Mo IOP Check in the right eye and left eye. Pt states no changes in OU since last visit. Pt is taking all gtts as instructed. Reason For [...] right eye and left eye. Pt states no changes in OU since last visit. Pt is taking all gtts as instructed. 1 Mo IOP Check The 78 year [...] both gtts. [facility] to [facility]. Blurry vision The 68 year old female [...] to Primary open-angle glaucoma, bilateral, moderate stage Oct- Impression/Plan - PO AG moderate stage OU-OCT [...] Refills of both medications were sent to [facility] pharmacy today. Recommend patient return in 6 months or sooner with problems. Follow up - 6 month IOP check and HVF 24-2 Follow up - 6 month complete exam, [...] of Xalatan have been sent to her [facility] pharmacy. Patient will return in 1 month [...] subcapsular cataract - 3 months cat/IOP c Philip vaughn on return Related to See list of [...] Primary open-angle glaucoma, joaquina ateral, severe stage Patient Care Teams Name Effective Dates (start - stop) Status Members No Information
--- OUTSIDE RECORDS SUMMARY | 2024-07-28 10:01 | XMS_ITS | Clinical Summary ---
Author Organization [facility] Address [address] [place] [id number] Care Team Providers Care Bowling Floor Manager Name Role Phone Unavailable Primary Care Provider [...] Td Vaccines ( 1 - Tdap) 1965 Pneumococcal Vaccine: 50+ Ye ars (1 of 1 - PCV) 1996 Zoster Vaccines (1 of 2) 1996 Dexa Scan (General) 06/10/2011 RSV Immunization or 60+ Years (1 - 1-dose 75+ series) 2021 COVID-19 Vaccine (2023-2 5 season) 2023 Meningococcal B Vaccine Aged Out No l onger eligible based on patient's age to complete this topic Meningococcal Vaccine Aged Out No ambrocio rja eligible based on patient's age to complete this topic RSV Immunizations Under 20 Months Aged Out No longer eligible based on patient's age to complete this topic
== END 2024-07-28 09:36 | disposition home or self-care (01) ==
LOC: ANHCARD 09:36
PROVIDERS: PCP Nurse Practitioner Family; Visit Provider Internal Medicine Cardiovascular Disease
DX: R93.1 Abnormal findings on diagnostic imaging of heart and coronary circulation (principal); I34.1 Nonrheumatic mitral (valve) prolapse
CPT/HCPCS: 93306

== ENCOUNTER 2024-08-02 09:28 | Outpatient (CLI) | payer MEDICARE, SELFPAY ==
--- NOTE | ~2024-08-02 | CT_ITS ---
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 Dose reduction technique was used on this scan by utilizing automated exposu re control and iterative reconstruction technique. The dose-length product (DLP) was 139.73 mGy-cm. COMPARISON: 05/09/2024 Findings: There is no evidence of any significant mediastinal, hilar or axillary lymphadenopathy. There is no f illing defect in the pulmonary arterial tree to suggest pulmonary embolus. There is no evidence of ao rtic dissection or aneurysm. Aberrant right subclavian artery noted. There is no evidence of pleural or pericardial effusion. Left lower lobe pulmonary mass is probably mildly increased, now measuring 4 cm in diameter (axial im age 64). Right middle lobe mass is essentially unchanged, measuring 4.2 cm in diameter. 4.0 cm right lower lobe mass is unchanged. Additional 2.2 cm right lower lobe nodule is also unchanged. Additional 2 cm right lower lobe nodule is also stable (axial image 92). Stable cavitary lesion peripherally in the left lower lobe (axial image 75). Mild biapical scarring present. Images through the upper abdomen reveal no abnormalities. Stable compression fractures of T11, T12, a nd L2. Impression: Pulmonary metastases are largely stable from prior exam, with mild interval increase of the left lowe r lobe mass. Stable compression fractures of T11, T12, and L2. Reviewed, dictated and finalized at [facility]. Impression: Pulmonary metastases are largely stable from prior exam, with mild interval inc rease of the left lower lobe mass. Stable compression fractures of T11, T12, and L2.
== END 2024-08-02 09:29 | disposition home or self-care (01) ==
PROVIDERS: PCP Nurse Practitioner Family; Visit Provider Internal Medicine Hematology & Oncology
DX: C78.7 Secondary malignant neoplasm of liver and intrahepatic bile duct (principal); S22.080D Wedge compression fracture of T11-T12 vertebra, subsequent encounter for fracture with routine healing; X58.XXXD Exposure to other specified factors, subsequent encounter
CPT/HCPCS: 71260; Q9967

== ENCOUNTER 2024-10-14 10:24 | Outpatient (CLI) | payer MEDICARE, SELFPAY ==
--- NOTE | ~2024-10-14 | CT_ITS ---
EXAMINATION: CT chest abdomen pelvis w con DATE: 10/14/2024 11:24 INDICATION: Recurrent carcinoma of endometrium. TECHNIQUE: Computed tomography (CT) of the chest, abdomen, and pelvis was performed with 100 mL Omnipaque 350 intravenous contrast. Automated exposure control and iterative reconstruction technique were employed. The dose-length product was 316.04 mGy-cm. COMPARISON: CT chest 08/02/2024 FINDINGS: CHEST CT: There is mild scarring at the lung apices. There is mild atelectasis bilaterally. There are approximately 6 nodules and masses in the lungs, some with cavitation. For example, a 4.5 x 3.5 cm mass in right middle lobe previously measured 4.4 x 3.4 cm. A 4.6 x 4.1 cm mass in left lower lobe previously measured 4.0 x 3.8 cm. No pleural effusion. There is a right subclavian port with tip in right atrium. There is left atrial enlargement. There are coronary artery calcifications. No pericardial effusion. There is an aberrant right subclavian artery. There are chronic compression fractures of multiple vertebral bodies. There is a chronic burst fracture of T12. There is moderate thoracic spondylosis. ABDOMEN/PELVIS CT: The liver, gallbladder, spleen, pancreas, adrenal glands are normal. There are cysts in the kidneys measuring up to 1.1 cm on the left. There are no dilated loops of bowel. There are surgical changes of the ileocolic junction. There are no pathologically enlarged lymph nodes. There is trace pelvic ascites. 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 There is severe lumbar spondylosis. There is a chronic compression fracture of L2. IMPRESSION: 1. Stable masses and nodules in the lungs, consistent with metastatic disease. Reviewed, dictated and finalized at location E.
--- OUTSIDE RECORDS SUMMARY | 2024-10-14 10:43 | XMS_ITS | Encounter Summary ---
Author Organization [employer] [facility] Address [address] [place] [address] Care Team Providers Care Stewardess Supervisor Name Role Phone Jose Miguel Worrell MD Primary Care Provider Reason for Visit * Reason Comments Medication Refill Encounter Details Date Type Department Care Team ([facility] Contact Info) Description 07/18/2018 Refill [facility] Oncology [facility] [address] [place] [address] Tesfaye Alfaro MD [address] [place] [phone] Recurrent carcinoma of endometrium (CMS/HCC) Social History Tobacco Use Types Packs/Day Years Used Date Smoking Tobacco: Never Smokeless Tobacco: Never Alcohol Use Standard Drinks/Week Comments No 0 (1 standard drink = 0.6 oz pur e alcohol) Comments No Sex and Gender Information Value Date Recorded Sex Assigned at Not on file Legal Sex Female 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 Gender Identity Not on file Sexual Orientation Not on file documented as of this encounter Plan of Treatment Upcoming Encounters Date Type Department Care Team ([facility] Contact Info) Description 11/01/2024 9:30 AM CDT Office Visit [facility] Oncology [facility] [address] [place] [address] Tesfaye Alfaro MD [address] [place] [address] documented as of this encounter Visit Diagnoses Diagnosis 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
--- OUTSIDE RECORDS SUMMARY | 2024-10-14 10:43 | XMS_ITS | Encounter Summary ---
Author Organization [facility] Address 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 Gender Identity Not on file Sexual Orientation Not on file documented as of this encounter Plan of Treatment Upcoming Encounters Date Type Department Care Team (Late st Contact Info) Description 11/01/2024 9:30 AM CDT Office Visit [facility] Oncology and Hematology [facility] [address] [facility] [address] [place] [address] Tesfaye Alfaro MD [address] [facility] [address] [place] [address] documented as of this encounter Visit Diagnoses Diagnosis Malignant neoplasm of corpus uteri, except isthmus (CMS/HCC)- Primary Malignant neoplasm of corpus uteri, except isthmus documented in this encounter Care Teams Verification Specialist Relationship Specialty Start Date End Date Jose Miguel Worrell MD [address] [place] [address] PCP - General Family Practice 10/25/19 documented as of this encounter
--- OUTSIDE RECORDS SUMMARY | 2024-10-14 10:43 | XMS_ITS | Encounter Summary ---
Author Organization [facility] [employer] [facility] Address [address] [place] [address] Care Team Providers Care Fountain Helper Name Role Phone Jose Miguel Worrell MD Primary Care Provider Encounter Details Date Type Department Care Team (Late Contact Info) Description 10/12/2024 Orders Only [facility] Oncology and Hematology [facility] [address] [place] [address] Tesfaye Alfaro MD [facility] [employer] [address] [place] [address] Social History Tobacco Use Types Packs/Day Years Used Date Smoking Tobacco: Never Smokeless Tobacco: Never Alcohol Use Standard Drinks/Week Comments No 0 (1 standard drink = 0.6 oz pur e alcohol) Comments No Sex and Gender Information Value Date Recorded Sex Assigned at Not on file 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 Gender Identity Not on file Sexual Orientation Not on file documented as of this encounter Plan of Treatment Upcoming Encounters Date Type Department Care Team (Late Contact Info) Description 11/01/2024 9:30 AM CDT Office Visit [facility] Oncology and Hematology [facility] [address] [place] [address] Tesfaye Alfaro MD [address] [place] [address] documented as of this encounter Procedures Procedure Name Priority Date/Time Associated Diagnosis Comments BASIC METABOLIC PANEL Routine 10/11/2024 12:42 PM CDT CBC WITH AUTODIFFERENTIAL Routine 2024 12:41 PM CDT documented in this encounter Results * BASIC METABOLIC PANEL (10/11/2024 12:42 PM CDT) Blood us Tesfaye Alfaro MD CHEMISTRY ORDERABLES Final Resu lt * CBC WITH AUTODIFFERENTIAL (10/11/2024 12:41 PM CDT) Blood us Tesfaye Alfaro MD HEMATOLOGY ORDERABLES Final Res ult documented in this encounter Visit Diagnoses Not on filedocumented in this encounter Care Teams Fountain Helper Relationship Specialty Start Date End Date Jose Miguel Worrell MD [address] [place] [phone] PCP - General Family Practice 10/25/19 documented as of this encounter
--- OUTSIDE RECORDS SUMMARY | 2024-10-14 10:43 | XMS_ITS | Clinical Summary ---
Author Organization [facility] Address [address] [place] [address] Care Team Providers Care Wire Insulator Name Role Phone Noman Prince MD Primary Care Provider [phone] Source Comments [facility],non-owned Affiliates and Associated Physician Practices is amultiple site organization consisting of ambulatory clinics and hospital sitesin [place], [place], [place] and [place]. This disclosure is being madepursuant to the Care Everywhere program and may not contain all information available regarding this patient. Last updated 17.[facility] Allergies No known active allergies Medications * [...] on file Legal Sex Female 6:31 AM COMBINATION MAN Gender Identity Not on file Sexual Orientation Not on file Last Filed Vital Signs Vital Sign Reading Time Taken Comments Blood Pressure 150/78 07/04/2014 11:55 AM CDT Pulse 77 12/28/2012 10:49 AM COMBINATION MAN Temperature 37.2 C (99 F) 09/02/2011 1:12 [...] yrs (1 - 1-dose 75+ series) 2021 DEPRESSION SCREENING 02/10/2024 COVID-19 VACCINE (1 - 2023-2 5 season) 2024 INFLUENZA VACCINE (#1) 2024 HEPATITIS B VACCINE Aged Out No [...] patient's age to complete this topic Insurance [facility] MEDICARE Care Teams Wire Insulator Relationship Specialty Start Date End Date Noman Prince MD [address] [place] [address] PCP - General Family Medicine 03/08/12
--- OUTSIDE RECORDS SUMMARY | 2024-10-14 10:43 | XMS_ITS | Clinical Summary ---
Author Organization [facility] Address [address] [place] [address] Care Team Providers Care Oceanographic Meteorologist Name Role Phone Jose Miguel Worrell MD [...] ACTIVE ORAL) Take by mouth. 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) 10/03/2024 Orders Only [facility] Oncology and Hematology - [place] [address] [place] [phone] Tesfaye Alfaro MD 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); Recurrent carcinoma of endometrium (CMS/HCC) 09/20/2024 9:30 AM CDT Office Visit [facility] Oncology and Hematology [facility] [address] [place] [phone] Tesfaye Alfaro MD Recurrent carcinoma of endometrium (CMS/HCC) (Primary Dx) 09/20/2024 Orders Only [facility] Oncology and Hematology [facility] [address] [place] [phone] Tesfaye Alfaro MD Recurrent carcinoma of endometrium (CMS/HCC) (Primary Dx) 09/19/2024 Orders Only [facility] Oncology and Hematology [facility] [address] [place] [address] Tesfaye Alfaro MD Recurrent carcinoma of endometrium (CMS/HCC); 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) 09/05/2024 Orders Only [facility] Oncology and Hematology [facility] [address] [place] [address] Tesfaye Alfaro MD 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); Recurrent carcinoma of endometrium (CMS/HCC) 08/31/2024 Orders Only [facility] Oncology and Hematology [address] [place] [address] Tesfaye Alfaro MD 08/22/2024 Orders Only [facility] Oncology and Hematology - [place] [address] [place] [address] Tesfaye Alfaro MD 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); Recurrent carcinoma of endometrium (CMS/HCC) 08/10/2024 Orders Only [facility] Oncology and Hematology - [place] [address] [place] [address] Tesfaye Alfaro MD 08/09/2024 11:45 AM CDT Office Visit [facility] Oncology and Hematology [facility] [address] Tesfaye Alfaro MD 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) 08/08/2024 Orders Only [facility] Oncology and Hematology [facility] [address] Tesfaye Alfaro MD 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); Recurrent carcinoma of endometrium (CMS/HCC) 08/03/2024 Orders Only [facility] Oncology and Hematology [facility] [address] Tesfaye Alfaro MD 07/26/2024 External Device Data STL ABSTRACTION Provider, Abstract 07/25/2024 Orders Only [facility] Oncology and Hematology [facility] [address] [place] [phone] Tesfaye Alfaro MD 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); Recurrent carcinoma of endometrium (CMS/HCC) 07/20/2024 Orders Only [facility] Oncology and Hematology [facility] [address] [place] [phone] Tesfaye Alfaro MD 07/15/2024 Orders Only [facility] Oncology and Hematology [facility] [address] [place] [address] Tesfaye Alfaro MD from Last 3 Months Family History Medical [...] on file 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 Gender Identity Not on file Sexual Orientation Not on file Last Filed Vital Signs Vital Sign Reading Time Taken Comments Blood Pressure 115/73 09/20/2024 9:33 AM CDT Pulse 73 09/20/2024 9:33 AM CDT Temperature 36.2 C (97.2 F) 09/20/2024 9:33 AM CDT Respiratory Rate 15 08/09/2024 11:48 AM CDT Oxygen Saturation 98% 09/20/2024 9:33 AM CDT Inhaled Oxygen Concentration - - Weight 54.9 kg (121 lb) 09/20/2024 9:33 AM CDT Height 152.4 cm (5') 09/20/2024 9:33 AM CDT Body Mass Index 23.63 09/20/2024 9:33 AM CDT Plan of Treatment Upcoming Encounters Date Type Department Care Team (Late st Contact Info) Description 11/01/2024 9:30 AM CDT Office Visit [facility] Oncology and Hematology [facility] [address] [facility] [address] [place] [address] Tesfaye Alfaro MD [address] [facility] [address] [place] [address] Health Maintenance Due Date Last Done Comments DTAP/TDAP/TD VACCINES (1 - Tdap) 1964 PNEUMOCOCCAL VACCINE 50+ YEA RS (1 of 2 - PCV) 1965 Traditional Medicare (ACO) A nnual Wellness Visit 1964 ZOSTER VACCINE (1 of 2) 1965 RSV VACCINE (60+ or ) (1 - 1-dose 75+ series) 2021 OSTEOPOROSIS SCREENING 06/26/2022 06/26/2017, 2015 INFLUENZA VACCINE (#1) 2024 COLORECTAL SCREENING Discontinued 11/08/2015 Colorectal Cancer Screening Discontinued FIT-DNA Q 3 years Discontinued FIT/FOBT Q 1 year Discontinued Flex Sig/CT Colonography Q 5 years Discontinued Procedures Procedure Name Priority Date/Time Associated Diagnosis Comments BASIC METABOLIC PANEL Routine 10/11/2024 12:42 PM CDT CBC WITH AUTODIFFERENTIAL Routine 2024 12:41 PM CDT BASIC METABOLIC PANEL Routine 09/20/2024 1:23 PM CDT CBC WITH AUTODIFFERENTIAL Routine 2024 1:13 PM CDT BASIC METABOLIC PANEL Routine 08/30/2024 4:54 PM CDT CBC WITH DIFFERENTIAL Routine 08/30/2024 4:53 PM CDT BASIC METABOLIC PANEL Routine 08/09/2024 8:05 AM CDT CBC WITH AUTODIFFERENTIAL Routine 2024 7:[address] CHEST W CONTRAST Routine 08/02/2024 2 :47 PM CDT BASIC METABOLIC PANEL Routine 07/19/2024 10:27 AM CDT CBC WITH AUTODIFFERENTIAL Routine 2024 10:26 AM CDT from Last 3 Months Results * BASIC METABOLIC PANEL (10/11/2024 12:42 PM CDT) Only the most recent of5 resultswithin the time period is included. Blood us Tesfaye Alfaro MD CHEMISTRY ORDERABLES Final Resu lt * CBC WITH AUTODIFFERENTIAL (10/11/2024 12:41 PM CDT) Only the most recent of4 resultswithin the time period is included. Blood us Tesfaye Alfaro MD HEMATOLOGY ORDERABLES Final Res ult * CBC WITH DIFFERENTIAL (08/30/2024 4:53 PM CDT) Blood us Tesfaye Alfaro MD HEMATOLOGY ORDERABLES Final Res ult * CT CHEST W CONTRAST (08/02/2024 2:47 PM CDT) Anatomical Region Laterality Modality Chest Computed Tomogra phy us Tesfaye Alfaro MD CT ORDERABLES Final Result from Last 3 Months Insurance MEDICARE PART A AND B [facility] SUPP MEDICARE PART A AND B [facility] SUPP Care Teams Oceanographic Meteorologist Relationship Specialty Start Date End Date Jose Miguel Worrell MD [address] [place] [address] PCP - General Family Practice 10/25/19
--- OUTSIDE RECORDS SUMMARY | 2024-10-14 10:43 | XMS_ITS | Clinical Summary ---
Author Organization [facility] Address [address] [place] [address] Care Team Providers Care Athletic Events Scorer Name Role Phone Unavailable Primary Care Provider [...] series) 2021 COVID-19 Vaccine (2023-2 5 season) 2024 Meningococcal B Vaccine Aged Out No l onger eligible based on patient's age to complete this topic Meningococcal Vaccine Aged Out No ambrocio raj eligible based on patient's age to complete this topic RSV Immunizations Under 20 Months Aged Out No longer eligible based on patient's age to complete this topic
== END 2024-10-14 10:25 | disposition home or self-care (01) ==
PROVIDERS: PCP Nurse Practitioner Family; Visit Provider Internal Medicine Hematology & Oncology
DX: C54.1 Malignant neoplasm of endometrium (principal)
CPT/HCPCS: 71260; 74177; Q9967

== ENCOUNTER 2025-01-03 10:22 | Outpatient (CLI) | payer MEDICARE, SELFPAY ==
[2025-01-03 12:21] LABS: Cholesterol 183 mg/dL (0-200); HDL Direct 72 mg/dL; Triglycerides 64 mg/dL (<150)
== END 2025-01-03 10:23 | disposition home or self-care (01) ==
LOC: ANHLAB 10:23
PROVIDERS: PCP Nurse Practitioner Family; Visit Provider Nurse Practitioner Family
DX: E78.5 Hyperlipidemia, unspecified (principal)
CPT/HCPCS: 36415; 80061